=== PATIENT | female | born 1965 | race Caucasian/White ===

== ENCOUNTER 2016-04-13 09:45 | Emergency (ER) | payer BC, OTHER ==
[~2016-04-13] VITALS: Ht 172.7 cm; Wt 83.9 kg
[~2016-04-13 09:45] MED LIST: ASPI-624 PO; CYCL10TA9 PO; HYDR-757 PO; MULT-974 PO; PRD20T PO
[2016-04-13] MEDS ORDERED: fentaNYL INJECTION 100 MCG/2 ML AMP IVP PRN (10:15)
[2016-04-13] MEDS ORDERED: NS IV 1000 ML 1,000 ML IV SCH (10:15)
[2016-04-13] MEDS ORDERED: ONDANSETRON 4 MG/2 ML (SDV) Z0FRAN IVP ONE (10:15)
[2016-04-13 10:21] LABS: BASOPHILS % (AUTO) 0 % (0-10); EOSINOPHILS # (AUTO) 0.1 10^3/uL (0.0-0.3); EOSINOPHILS % (AUTO) 1 % (0-10); LYMPHOCYTES # (AUTO) 1.9 X 10^3 (1.0-4.0); LYMPHOCYTES % (AUTO) 13 % (12-44); MEAN CORPUSCULAR HEMOGLOBIN 31 PG (25-34); MEAN CORPUSCULAR HGB CONC 34 G/DL (32-36); MEAN CORPUSCULAR VOLUME 92 FL (80-99); MEAN PLATELET VOLUME 9.7 FL (7.4-10.4); MONOCYTES # (AUTO) 0.9 X 10^3 (0.0-1.0); MONOCYTES % (AUTO) 6 % (0-12); NEUTROPHILS # (AUTO) 12.2 X 10^3 (1.8-7.8); NEUTROPHILS % (AUTO) 81 % (42-75); PLATELET COUNT 275 10^3/uL (130-400); RED BLOOD COUNT 4.97 10^6/uL (4.35-5.85); WHITE BLOOD COUNT 15.1 10^3/uL (4.3-11.0)
--- NOTE | 2016-04-13 10:22 | ED Abdominal Pain ---
General Chief Complaint: Abdominal/GI Problems Stated Complaint: L SIDE LEG & BACK PAIN Nursing Triage Note: AMBULATED TO ROOM 05 WITH COMPLAINTS OF SEVERE LEFT LOWER ABD PAIN THAT RADIATES INTO BACK. WAS SEEN AT [facility] ET SENT HERE FOR A CT BUT DECIDED TO CHECK INTO ER DUE TO PAIN. Sepsis Screen: No Definite Risk Source of Information: Patient, Family Exam Limitations: No Limitations History of Present Illness Time Seen By Provider: 10:18 Initial Comments This 51-year-old white female presents with complaint of left lower quadrant pain sharp in nature radiating into her back that has been present for the last 3 days. The patient's pain became significantly worse today precipitating her presentation to the emergency department. Patient denies associated fever, chills, vomiting, diarrhea, dysuria or hematuria, or similar episodes in the past. There is no family history of kidney stones. Patient's past medical history includes appendectomy and 3. The patient was referred to the emergency department from [facility]. Allergies and Home Medications Allergies Coded Allergies: No Known Drug Allergies (Unverified , 07/27/13) Home Medications No Active Prescriptions or Reported Meds Review of Systems Constitutional: No chills, No fever EENTM: No Ear Pain, No Throat Pain Respiratory: Denies Cough Cardiovascular: Denies Chest Pain Gastrointestinal: Abdominal Pain (left lower quadrant radiating the left flank.) Genitourinary: Denies Burning, Denies Frequency, Denies Hematuria Musculoskeletal: back pain (pain in the left flank.) Skin: No rash Psychiatric/Neurological: No Symptoms Reported Endocrine: No Symptoms Reported Hematologic/Lymphatic: No Symptoms Reported Past Ckwnjol-Giwxej-Ypmydm Hx Patient Social History Alcohol Use: Occasionally Uses Recreational Drug Use: No Smoking Status: Current Everyday Smoker Recent Foreign Travel: No Contact w/Someone Who Travel: No Recent Infectious Disease Expo: No Recent Hopitalizations: No Surgeries HX Surgeries: Yes (D&C) Surgeries: Appendectomy, Section Respiratory Hx Respiratory Disorders: No Cardiovascular Hx Cardiac Disorders: Yes Cardiac Disorders: Hypertension Neurological Hx Neurological Disorders: No Genitourinary Hx Genitourinary Disorders: No Gastrointestinal Hx Gastrointestinal Disorders: No Musculoskeletal Hx Musculoskeletal Disorders: No Endocrine Hx Endocrine Disorders: No HEENT HX ENT Disorders: No Cancer Hx Cancer: No Psychosocial Hx Psychiatric Problems: No Reviewed Nursing Assessment Reviewed/Agree w Nursing PMH: Yes Physical Exam Vital Signs VS - Last 72 Hours, by Label 04/13/16 09:50 Temp 98.0 Pulse 80 Resp 18 B/P 193/98 Pulse Ox 97 O2 Delivery Room Air Capillary Refill : Less Than 3 Seconds General Appearance: WD/WN moderate distress HEENT: normal ENT inspection Neck: normal inspection Respiratory: lungs clear Cardiovascular: regular rate, rhythm Gastrointestinal: normal bowel sounds non tender soft Extremities: normal range of motion non-tender normal inspection Back: normal inspection no CVA tenderness Neurologic/Psychiatric: no motor/sensory deficits alert normal mood/affect Skin: normal color warm/dryNo rash Progress/Results/Core Measures Results/Orders Lab Results Laboratory Tests Test 04/13/16 10:05 04/13/16 12:00 Range/Units Alanine Aminotransferase (ALT/SGPT) 19 0-55 U/L Albumin 4.2 3.2-4.5 G/DL Alkaline Phosphatase 61 40-136 U/L Anion Gap 12 5-14 MMOL/L Aspartate Amino Transf (AST/SGOT) 19 5-34 U/L BUN/Creatinine Ratio 27 Band Neutrophils % Basophils # (Auto) 0.0 0.0-0.1 10^3/uL Basophils (%) (Auto) 0 0-10 % Blood Morphology Comment NORMAL Blood Urea Nitrogen 18 7-18 MG/DL Calcium Level 8.8 8.5-10.1 MG/DL Carbon Dioxide Level 21 21-32 MMOL/L Chloride Level 105 98-107 MMOL/L Creatinine 0.67 0.60-1.30 MG/DL Eosinophils # (Auto) 0.1 0.0-0.3 10^3/uL Eosinophils % (Manual) % Eosinophils (%) (Auto) 1 0-10 % Estimat Glomerular Filtration Rate > 60 Glucose Level 96 70-105 MG/DL Hematocrit 46 35-52 % Hemoglobin 15.3 11.5-16.0 G/DL Lipase 34 8-78 U/L Lymphocytes # (Auto) 1.9 1.0-4.0 X 10^3 Lymphocytes % (Manual) 16 % Lymphocytes (%) (Auto) 13 12-44 % Mean Corpuscular Hemoglobin 31 25-34 PG Mean Corpuscular Hemoglobin Concent 34 32-36 G/DL Mean Corpuscular Volume 92 80-99 FL Mean Platelet Volume 9.7 7.4-10.4 FL Monocytes # (Auto) 0.9 0.0-1.0 X 10^3 Monocytes % (Manual) 4 % Monocytes (%) (Auto) 6 0-12 % Neutrophils # (Auto) 12.2 H 1.8-7.8 X 10^3 Neutrophils % (Manual) 80 % Neutrophils (%) (Auto) 81 H 42-75 % Platelet Count 275 130-400 10^3/uL Potassium Level 3.9 3.6-5.0 MMOL/L Red Blood Count 4.97 4.35-5.85 10^6/uL Red Cell Distribution Width 15.0 H 10.0-14.5 % Sodium Level 138 135-145 MMOL/L Total Bilirubin 0.4 0.1-1.0 MG/DL Total Protein 7.0 6.4-8.2 G/DL White Blood Count 15.1 H 4.3-11.0 10^3/uL My Orders Orders-MICHELLE ZAMORA MD Fentanyl Injection (Sublimaze Injection (04/13/16 10:15) Ondansetron Injection (Zofran Injectio (04/13/16 10:15) Ns Iv 1000 Ml (Sodium Chloride 0.9%) (04/13/16 10:15) Ct Abd/Pelvis Wo(Kidney Stone) (04/13/16 10:15) Cbc With Automated Diff (04/13/16 10:15) Comprehensive Metabolic Panel (04/13/16 10:15) Ua Culture If Indicated (04/13/16 10:15) Lipase (04/13/16 10:15) Manual Differential (04/13/16 10:05) Hydromorphone Injection (Dilaudid Inject (04/13/16 11:00) Us Non Ob Pelvis Comp/Transvag (04/13/16 11:04) Medications Given in ED Current Medications Medications Dose Ordered Sig/Lorena Route Start Time Stop Time Status Last Admin Dose Admin Fentanyl Citrate 50 mcg Q1H PRN IVP 04/13/16 10:15 04/13/16 10:19 50 MCG Hydromorphone HCl 1 mg Q4H PRN IVP 04/13/16 11:00 04/13/16 11:01 1 MG Ondansetron HCl 4 mg ONCE ONCE IVP 04/13/16 10:15 04/13/16 10:16 DC 04/13/16 10:19 4 MG Vital Signs/I&O Vital Sign - Last 12Hours 04/13/16 09:50 Temp 98.0 Pulse 80 Resp 18 B/P 193/98 Pulse Ox 97 O2 Delivery Room Air Blood Pressure Mean: 129 Progress Note : Time: 12:19 Progress Note The patient's white count was elevated at 15,000. Her CT of the abdomen and pelvis demonstrated no evidence of a kidney stone but some evidence of stranding suggestive of diverticulitis. The patient's pelvic ultrasound demonstrated marked thickening of the endometrium. The radiologist said that it was possible this could represent an endometrial cancer. I discussed treatment options with the patient and we are going to send her with pain medication and nausea medicine. A mass that she initiate Cipro and Flagyl. I asked her to follow up with [facility] on Saturday for further evaluation of her left lower quadrant pain and for her endometrial mass. Departure Impression Impression: Primary Impression: Diverticulitis of intestine Qualified Code: K57.32 - Diverticulitis of large intestine without perforation or abscess without bleeding Additional Impression: Endometrial cancer Disposition: HOME, SELF-CARE Condition: Improved Departure-Patient Inst. Decision time for Depature: 12:22 Referrals: [facility],LOCAL PHYSICIAN (PCP) Primary Care Physician Patient Instructions: Diverticulitis (DC) Add. Discharge Instructions: Flagyl, Cipro, Percocet, and Zofran as prescribed. Close follow-up with [facility] on Saturday for further evaluation of probable diverticulitis and possible endometrial cancer. Come back for any problems or questions All discharge instructions reviewed with patient and/or family. Voiced understanding. Scripts Ondansetron (Zofran Odt)4 Mg Tab.rapdis4 Mg PO Q4H PRN NAUSEA #20 TAB Prov:MICHELLE ZAMORA MD 04/13/16 Oxycodone HCl/Acetaminophen (Percocet 7.5-325 mg Tablet)1 Each Tablet1 Each PO Q4H PRN p #20 TAB Prov:MICHELLE ZAMORA MD 04/13/16 Ciprofloxacin/Ciprofloxa HCl (Ciprofloxacin ER 500 mg Tablet)500 Mg [id number] Mg PO BID 10 Days Prov:MICHELLE ZAMORA MD 04/13/16 Metronidazole (Flagyl)500 Mg [id number] Mg PO TID 10 Days Prov:MICHELLE ZAMORA MD 04/13/16 MICHELLE ZAMORA MD Apr 13, 2016 10:22
[2016-04-13 10:39] LABS: ALANINE AMINOTRANSFERASE 19 U/L (0-55); ALBUMIN 4.2 G/DL (3.2-4.5); ANION GAP 12 MMOL/L (5-14); ASPARTATE AMINO TRANSFERASE 19 U/L (5-34); BILIRUBIN,TOTAL 0.4 MG/DL (0.1-1.0); BLOOD UREA NITROGEN 18 MG/DL (7-18); BUN/CREATININE RATIO 27; CALCIUM 8.8 MG/DL (8.5-10.1); CARBON DIOXIDE 21 MMOL/L (21-32); CHLORIDE 105 MMOL/L (98-107); CREATININE SERUM 0.67 MG/DL (0.60-1.30); GFR ESTIMATED > 60; GLUCOSE 96 MG/DL (70-105); LIPASE 34 U/L (8-78); POTASSIUM 3.9 MMOL/L (3.6-5.0); SODIUM 138 MMOL/L (135-145)
[2016-04-13 10:43] LABS: LYMPHOCYTES % (MANUAL) 16 %; NEUTROPHILS % (MANUAL) 80 %
[2016-04-13] MEDS ORDERED: HYDROmorphone (DILAUDID) 2 MG/ML VIAL IVP PRN (11:00)
--- NOTE | 2016-04-13 11:06 | Diagnostic Imaging Report ---
PROCEDURE: CT urinary tract, rule out kidney stone. TECHNIQUE: Multiple contiguous axial images were obtained through the abdomen and pelvis without the use of intravenous contrast. INDICATION: Left-sided abdominal pain. FINDINGS: The lung bases are clear. The liver, the gallbladder, the spleen, the adrenal glands, and the pancreas appear unremarkable for unenhanced exam. There is no hydronephrosis. No urinary tract stones seen. The appendix appears normal. There are numerous colonic diverticula with no evidence of diverticulitis. No free fluid or fluid collection in the abdomen or pelvis. The abdominal aorta is normal in caliber. There is prominence of the endometrial stripe seen in the upper aspect of the uterus. Better evaluation with ultrasound is recommended. There is a 1.1 cm sclerotic focus in the intertrochanteric region in the right femur and a 1 cm sclerotic focus also seen in the medial aspect of the right sacrum likely related to bone islands. IMPRESSION: 1. Diverticulosis. No diverticulitis. 2. The endometrium appears prominent in thickness. More accurate evaluation with pelvic ultrasound is recommended. The findings were discussed with Dr. Perez by Dr. Boyle at time of dictation. Dictated by: Dictated on workstation # [id number]
[2016-04-13 12:09] LABS: BILIRUBIN,URINE NEGATIVE (NEGATIVE); KETONES,URINE NEGATIVE (NEGATIVE); LEUKOCYTE ESTERASE ,URINE 1+ (NEGATIVE); NITRITE,URINE NEGATIVE (NEGATIVE); PH,URINE 7 (5-9); PROTEIN,URINE 1+ (NEGATIVE); UROBILINOGEN,URINE NORMAL (NORMAL)
[2016-04-13 12:24] LABS: SQUAMOUS EPITHELIAL CELL,UR 25-50 /HPF; YEAST,URINE FEW /HPF
[2016-04-13] MEDS ORDERED: OXYC-201 PO (12:27)
[2016-04-13] MEDS ORDERED: CIPR500T21 PO (12:27)
[2016-04-13] MEDS ORDERED: METR500T PO (12:27)
[2016-04-13] MEDS ORDERED: ONDA4TAB8 PO (12:27)
--- NOTE | 2016-04-13 12:28 | Diagnostic Imaging Report ---
Transabdominal and transvaginal pelvic ultrasound. INDICATION: Prominent endometrium on CT scan. FINDINGS: The uterus is 8.2 x 5.5 x 5.4 cm. The endometrial stripe is thickened measuring 5.5 cm with heterogenous globular appearance compatible with a mass. No internal vascularity with color Doppler is appreciated. The globular appearance is suspicious for neoplasm however. The right ovary is 2.3 x 2.4 x 2.7 cm. Simple-appearing cyst measuring 2 cm seen. The left ovary is obscured by bowel gas. IMPRESSION: There is a 5.5 cm endometrial mass. Differential includes endometrial carcinoma, hyperplasia, or polyp. The findings were discussed with Dr. Perez by Dr. Boyle at the time of dictation. Dictated by: Dictated on workstation # [id number]
[2016-04-13 12:45] VITALS: BP 142/78
== END 2016-04-13 12:41 | disposition home or self-care (01) ==
LOC: EDUNIT# 09:45 → ER 09:47
DX: K57.32 Diverticulitis of large intestine without perforation or abscess without bleeding (principal); N85.8 Other specified noninflammatory disorders of uterus; F17.210 Nicotine dependence, cigarettes, uncomplicated
CPT/HCPCS: 36415; 74176; 76830; 76856; 80053; 81000; 83690; 85007; 85027; 87088; 96374; 96375

== ENCOUNTER 2016-04-16 13:22 | Emergency (ER) | payer BC, OTHER ==
[~2016-04-16] VITALS: Ht 172.7 cm; Wt 83.9 kg
[~2016-04-16 13:22] MED LIST changes: +CIPR500T21 PO; +METR500T PO; +ONDA4TAB8 PO; +OXYC-201 PO
--- OUTSIDE RECORDS SUMMARY | 2016-04-16 13:32 | XMS REPORT | Continuity of Care Document ---
Author Author [facility] Organization [facility] Address Unknown Phone Unavailable Care Team Providers Care Duralumin Mechanic Name Role Phone NO, LOCAL PHYSICIAN PCP Unavailable Insurance Providers Payer Name Policy Number Subscriber Name Relationship Self Pay Pending [facility] Apprv [id number] Lian Mera 18 Self / Same As Patient Advance Directives Directive Response Recorded Date/Time Advance Directives No 04/13/16 10:02am Resuscitation Status Full Code 04/13/16 10:02am Chief Complaint and Reason for Visit Chief Complaint Abdominal/GI Problems Reason for Visit Diverticulitis of intestine [id number] Problems Active Problems Medical Problem Onset Date Status Diverticulitis of intestine Unknown Acute Endometrial cancer Unknown Acute Medications Current Home Medications Medication Dose Units Route Directions Days/Qty Instructions Start Date Metronidazole 500 Mg 500 Mg Oral Three Times A Day 10 Days 04/13/16 Ciprofloxacin/Ciprofloxa Hcl 500 Mg 500 Mg Oral Twice A Day 10 Days Oxycodone Hcl/Acetaminophen 1 Each 1 Each Oral Every 4HRS as needed for P 20 04/13/16 Ondansetron 4 Mg 4 Mg Oral Every 4HRS as needed for Nausea 20 04/13/16 Past Home Medications Medication Directions Ordered Status Aspirin 81 Mg Tablet, 81 Mg Oral Daily 07/27/13 Discontinued Multivitamin 1 Each Tablet, 1 Each Oral Daily 07/27/13 Discontinued Prednisone 20 Mg Tab, 40 Mg Oral Daily 07/27/13 Discontinued Hydrocodone Bit/Acetaminophen 1 Each Tablet, 1 Ea Oral Every 6 Hours as needed for Mild Pain 07/27/13 Discontinued Cyclobenzaprine Hcl (Flexeril) 10 Mg Tablet, 1 Each Oral Twice A Day as needed for Back Pain 07/27/13 Discontinued Social History Social History Problem Response Recorded Date/Time Alcohol Use Rarely Uses 07/27/2013 2:32pm Recreational Drug Use No 07/27/2013 2:32pm Recent Foreign Travel No 04/13/2016 9:50am Recent Infectious Disease Exposure No 04/13/2016 9:50am Smoking Status Current Everyday Smoker 04/13/2016 10:02am Recent Hopitalizations No 04/13/2016 10:02am Query Response Start Date Stop Date Smoking Status Current Everyday Smoker Hospital Discharge Instructions No hospital discharge instructions. Plan of Care Discharge Date 04/13/16 12:41pm Disposition 01 HOME, SELF-CARE Condition at Discharge Improved Instructions/Education Provided Diverticulitis (DC) Prescriptions See Medication Section Referrals [facility],LOCAL PHYSICIAN - Primary Care Physician Additional Instructions/Education Flagyl, Cipro, Percocet, and Zofran as prescribed. Close follow-up with [facility] on Saturday for further evaluation of probable diverticulitis and possible endometrial cancer. Come back for any problems or questions All discharge instructions reviewed with patient and/or family. Voiced understanding. Functional Status No functional status results. Allergies, Adverse Reactions, Alerts No known allergies. Immunizations No immunization records. Vital Signs Acute Vital Signs Vital Response Date/Time Temperature (Fahrenheit) 98 degrees F (97.6 - 99.5) 04/13/2016 9:50am Temperature (Calculated Celsius) 36.6696 degrees C (36.4 - 37.5) 04/13/2016 9 :50am Temperature Source Tympanic 04/13/2016 9:50am Pulse Rate (adult) 80 bpm (60 - 90) 04/13/2016 9:50am Respiratory Rate 18 bpm (12 - 24) 04/13/2016 9:50am O2 Sat by Pulse Oximetry 97 % (88 - 100) 04/13/2016 9:50am Blood Pressure 193/98 mm Hg 04/13/2016 9:50am Blood Pressure Mean 129 mm Hg 04/13/2016 9:50am Pain Numeric Pain Scale 3 04/13/2016 11:18am Pain Numeric Pain Scale 3 04/13/2016 11:18am Height (Feet) 5 feet 04/13/2016 9:50am Height (Inches) 8 inches 04/13/2016 9:50am Height (Calculated Centimeters) 172.674586 cm 04/13/2016 9:50am Weight (Pounds) 185 pounds 04/13/2016 9:50am Weight (Calculated Kilograms) 83.115033 kilograms 04/13/2016 9:50am Capillary Refill Capillary Refill Less Than 3 Seconds 04/13/2016 9:50am Height 5 ft 8 in Weight 185 lb Body Mass Index 28.1 kg/m^2 Results Laboratory Results Test Name Result Units Flags Reference Collection Date/Time Result Date/ Time Comments White Blood Count 15.1 10^3/uL H 4.3-11.0 04/13/2016 10:05am 04/13/2016 10:22am Red Blood Count 4.97 10^6/uL 4.35-5.85 04/13/2016 10:05am 04/13/2016 10 :22am Hemoglobin 15.3 G/DL 11.5-16.0 04/13/2016 10:05am 04/13/2016 10:22am Hematocrit 46 % 35-52 04/13/2016 10:05am 04/13/2016 10:22am Mean Corpuscular Volume 92 FL 80-99 04/13/2016 10:05am 04/13/2016 10: 22am Mean Corpuscular Hemoglobin 31 PG 25-34 04/13/2016 10:05am 04/13/2016 10:22am Mean Corpuscular Hemoglobin Concent 34 G/DL 32-36 04/13/2016 10:05am 10:22am Red Cell Distribution Width 15.0 % H 10.0-14.5 04/13/2016 10:05am 2016 10:22am Platelet Count 275 10^3/uL 130-400 04/13/2016 10:05am 04/13/2016 10: 22am Mean Platelet Volume 9.7 FL 7.4-10.4 04/13/2016 10:05am 04/13/2016 10: 22am Neutrophils (%) (Auto) 81 % H 42-75 04/13/2016 10:05am 04/13/2016 10: 22am Lymphocytes (%) (Auto) 13 % 12-44 04/13/2016 10:05am 04/13/2016 10: 22am Monocytes (%) (Auto) 6 % 0-12 04/13/2016 10:05am 04/13/2016 10:22am Eosinophils (%) (Auto) 1 % 0-10 04/13/2016 10:05am 04/13/2016 10:22am Basophils (%) (Auto) 0 % 0-10 04/13/2016 10:05am 04/13/2016 10:22am Neutrophils # (Auto) 12.2 X 10^3 H 1.8-7.8 04/13/2016 10:05am 04/13/2016 10:22am Lymphocytes # (Auto) 1.9 X 10^3 1.0-4.0 04/13/2016 10:05am 04/13/2016 10:22am Monocytes # (Auto) 0.9 X 10^3 0.0-1.0 04/13/2016 10:05am 04/13/2016 10: 22am Eosinophils # (Auto) 0.1 10^3/uL 0.0-0.3 04/13/2016 10:05am 04/13/2016 10:22am Basophils # (Auto) 0.0 10^3/uL 0.0-0.1 04/13/2016 10:05am 04/13/2016 10 :22am Neutrophils % (Manual) 80 % 04/13/2016 10:05am 04/13/2016 10:43am Lymphocytes % (Manual) 16 % 04/13/2016 10:05am 04/13/2016 10:43am Monocytes % (Manual) 4 % 04/13/2016 10:05am 04/13/2016 10:43am Blood Morphology Comment NORMAL 04/13/2016 10:05am 04/13/2016 10: 43am Urine Color YELLOW 04/13/2016 12:00pm 04/13/2016 12:24pm Urine Clarity CLEAR 04/13/2016 12:00pm 04/13/2016 12:24pm Urine pH 7 5-9 04/13/2016 12:00pm 04/13/2016 12:24pm Urine Specific [place] 1.010 * 1.016-1.022 04/13/2016 12:00pm 2016 12:24pm Urine Protein 1+ * NEGATIVE 04/13/2016 12:00pm 04/13/2016 12:24pm Urine Glucose (UA) NEGATIVE NEGATIVE 04/13/2016 12:00pm 04/13/2016 12 :24pm Urine RBC (Auto) NEGATIVE NEGATIVE 04/13/2016 12:00pm 04/13/2016 12: 24pm Urine Ketones NEGATIVE NEGATIVE 04/13/2016 12:00pm 04/13/2016 12: 24pm Urine Nitrite NEGATIVE NEGATIVE 04/13/2016 12:00pm 04/13/2016 12: 24pm Urine Bilirubin NEGATIVE NEGATIVE 04/13/2016 12:00pm 04/13/2016 12: 24pm Urine Urobilinogen NORMAL MG/DL NORMAL 04/13/2016 12:00pm 04/13/2016 12 :24pm Urine Leukocyte Esterase 1+ * NEGATIVE 04/13/2016 12:00pm 04/13/2016 12 :24pm Urine RBC 2-5 /HPF * 04/13/2016 12:00pm 04/13/2016 12:24pm Urine WBC 2-5 /HPF 04/13/2016 12:00pm 04/13/2016 12:24pm Urine Bacteria FEW /HPF * 04/13/2016 12:00pm 04/13/2016 12:24pm Urine Squamous Epithelial Cells 25-50 /HPF * 04/13/2016 12:00pm 2016 12:24pm Urine Crystals NONE /LPF 04/13/2016 12:00pm 04/13/2016 12:24pm Urine Casts NONE /LPF 04/13/2016 12:00pm 04/13/2016 12:24pm Urine Mucus SMALL /LPF * 04/13/2016 12:00pm 04/13/2016 12:24pm Urine Yeast FEW /HPF * 04/13/2016 12:00pm 04/13/2016 12:24pm Urine Culture Indicated YES 04/13/2016 12:00pm 04/13/2016 12:24pm Sodium Level 138 MMOL/L 135-145 04/13/2016 10:05am 04/13/2016 10:39am Potassium Level 3.9 MMOL/L 3.6-5.0 04/13/2016 10:05am 04/13/2016 10: 39am Chloride Level 105 MMOL/L 98-107 04/13/2016 10:05am 04/13/2016 10:39am Carbon Dioxide Level 21 MMOL/L 21-32 04/13/2016 10:05am 04/13/2016 10: 39am Anion Gap 12 MMOL/L 5-14 04/13/2016 10:05am 04/13/2016 10:39am Blood Urea Nitrogen 18 MG/DL 7-18 04/13/2016 10:05am 04/13/2016 10: 39am Creatinine 0.67 MG/DL 0.60-1.30 04/13/2016 10:05am 04/13/2016 10:39am BUN/Creatinine Ratio 27 04/13/2016 10:05am 04/13/2016 10:39am Estimat Glomerular Filtration Rate > 60 04/13/2016 10:052016 10:39am GFR INTERPRETIVE DATA UNITS FOR ESTIMATED GFR (eGFR): mL/min/1.73 M2 REFERENCE RANGE FOR ESTIMATED GFR (eGFR) eGFR NORMAL eGFR >60 MODERATELY DECREASED eGFR 30-59 SEVERLY DECREASED eGFR 15-29 KIDNEY FAILURE <15 (OR DIALYSIS) Glucose Level 96 MG/DL 70-105 04/13/2016 10:05am 04/13/2016 10:39am Calcium Level 8.8 MG/DL 8.5-10.1 04/13/2016 10:05am 04/13/2016 10:39am Total Bilirubin 0.4 MG/DL 0.1-1.0 04/13/2016 10:05am 04/13/2016 10: 39am Alkaline Phosphatase 61 U/L 40-136 04/13/2016 10:05am 04/13/2016 10: 39am Aspartate Amino Transf (AST/SGOT) 19 U/L 5-34 04/13/2016 10:05am 2016 10:39am Alanine Aminotransferase (ALT/SGPT) 19 U/L 0-55 04/13/2016 10:05am 05/2016 10:39am Total Protein 7.0 G/DL 6.4-8.2 04/13/2016 10:05am 04/13/2016 10:39am Albumin 4.2 G/DL 3.2-4.5 04/13/2016 10:05am 04/13/2016 10:39am Lipase 34 U/L 8-78 04/13/2016 10:05am 04/13/2016 10:39am Procedures No known history of procedures. Encounters Encounter Location Arrival/Admit Date Discharge/Depart Date Attending Provider Departed Emergency Room [facility] 04/13/16 9:47am 04/13 12:41pm MICHELLE ZAMORA MD Recent Diagnosis
[2016-04-16] MEDS ORDERED: KETOROLAC 30 MG/ML VIAL IVP ONE (14:30)
--- NOTE | 2016-04-16 14:43 | ED Abdominal Pain ---
General Chief Complaint: Abdominal/GI Problems Stated Complaint: ABD PAIN;BACK PAIN Nursing Triage Note: pt reports stabbing, burning pain that she was seen for on Saturday and diagnosed with diverticulitis and possible endometrial cancer. pt states pain becoming increasingly worse despite taking antibiotics and pain pills. Sepsis Screen: No Definite Risk Source of Information: Patient Exam Limitations: No Limitations History of Present Illness Time Seen By Provider: 14:41 Initial Comments To ER with suprapubic/left lower quadrant abdominal pain. She was seen here 3 days ago and diagnosed with diverticulitis. She states the pain has become worse since then. She was given a prescription for Percocet and Cipro as well as Zofran and Flagyl. Because of cost she only filled the Percocet and the Cipro. Timing/Duration: 2-3 Days Severity/Quality: Moderate Location: Suprapubic Radiation: No Radiation Activities at Onset: None Associated Symptoms: Denies Symptoms Allergies and Home Medications Allergies Coded Allergies: No Known Drug Allergies (Unverified , 07/27/13) Home Medications Ciprofloxacin/Ciprofloxa HCl 500 Mg Tbmp.24hr 10Days 500 MG PO BID Prescribed by: MICHELLE ZAMORA MD on 04/13/16 1227 Oxycodone HCl/Acetaminophen 1 Each Tablet #20 1 EACH PO Q4H PRN PRN p Prescribed by: MICHELLE ZAMORA MD on 04/13/16 1227 Oxycodone HCl/Acetaminophen 1 Each Tablet #20 1-2 EACH PO Q4H PRN PRN PAIN Prescribed by: SCARLETT DOWNING on 04/16/16 1622 Review of Systems Constitutional: see HPI EENTM: No Symptoms Reported Respiratory: No Symptoms Reported Cardiovascular: No Symptoms Reported Gastrointestinal: See HPI Abdominal Pain ConstipatedDenies Diarrhea, Denies Nausea Genitourinary: No Symptoms Reported Musculoskeletal: no symptoms reported Skin: no symptoms reported Psychiatric/Neurological: No Symptoms Reported Endocrine: No Symptoms Reported Hematologic/Lymphatic: No Symptoms Reported Past Qpalzmf-Pissjg-Akwtlw Hx Patient Social History Alcohol Use: Rarely Uses Recreational Drug Use: No Smoking Status: Current Everyday Smoker Recent Foreign Travel: No Contact w/Someone Who Travel: No Recent Infectious Disease Expo: No Recent Hopitalizations: No Seasonal Allergies Seasonal Allergies: No Surgeries HX Surgeries: Yes (d&c with ablation) Surgeries: Appendectomy, Section Respiratory Hx Respiratory Disorders: No Cardiovascular Hx Cardiac Disorders: Yes Cardiac Disorders: Hypertension Neurological Hx Neurological Disorders: No Reproductive System : No Genitourinary Hx Genitourinary Disorders: No Gastrointestinal Hx Gastrointestinal Disorders: No Musculoskeletal Hx Musculoskeletal Disorders: No Endocrine Hx Endocrine Disorders: No HEENT HX ENT Disorders: No Cancer Hx Cancer: No Psychosocial Hx Psychiatric Problems: No Integumentary HX Skin/Integumentary Disorder: No Blood Transfusions Hx Blood Disorders: No Physical Exam Vital Signs VS - Last 72 Hours, by Label 04/16/16 04/16/16 14:14 16:50 Temp 99.4 Pulse 76 76 Resp 20 18 B/P 148/86 Pulse Ox 98 98 O2 Delivery Room Air Capillary Refill : Less Than 3 Seconds General Appearance: WD/WN no apparent distress HEENT: PERRL/EOMI normal ENT inspection Neck: non-tender full range of motion Respiratory: normal breath sounds no respiratory distress no accessory muscle use Cardiovascular: regular rate, rhythm no murmur Gastrointestinal: normal bowel sounds soft tenderness Extremities: normal range of motion non-tender normal inspection Pelvic: other (on pelvic exam there is no cervical friability, there is minimal whitish discharge in vaginal vault, no discharge seen coming from the cervix including no blood.) Neurologic/Psychiatric: alert normal mood/affect oriented x 3 Skin: normal color warm/dry Progress/Results/Core Measures Results/Orders Lab Results Laboratory Tests Test 04/16/16 14:33 04/16/16 15:40 Range/Units Alanine Aminotransferase (ALT/SGPT) 13 0-55 U/L Albumin 4.0 3.2-4.5 G/DL Alkaline Phosphatase 64 40-136 U/L Anion Gap 10 5-14 MMOL/L Aspartate Amino Transf (AST/SGOT) 17 5-34 U/L BUN/Creatinine Ratio 17 Band Neutrophils 0 % Basophils # (Auto) 0.0 0.0-0.1 10^3/uL Basophils % (Manual) 0 % Basophils (%) (Auto) 0 0-10 % Blood Morphology Comment NORMAL Blood Urea Nitrogen 11 7-18 MG/DL Calcium Level 8.6 8.5-10.1 MG/DL Carbon Dioxide Level 23 21-32 MMOL/L Chloride Level 104 98-107 MMOL/L Creatinine 0.64 0.60-1.30 MG/DL Eosinophils # (Auto) 0.1 0.0-0.3 10^3/uL Eosinophils % (Manual) 0 % Eosinophils (%) (Auto) 0 0-10 % Estimat Glomerular Filtration Rate > 60 Glucose Level 96 70-105 MG/DL Hematocrit 43 35-52 % Hemoglobin 14.5 11.5-16.0 G/DL Lymphocytes # (Auto) 1.1 1.0-4.0 X 10^3 Lymphocytes % (Manual) 9 % Lymphocytes (%) (Auto) 7 L 12-44 % Mean Corpuscular Hemoglobin 31 25-34 PG Mean Corpuscular Hemoglobin Concent 34 32-36 G/DL Mean Corpuscular Volume 92 80-99 FL Mean Platelet Volume 9.7 7.4-10.4 FL Monocytes # (Auto) 1.0 0.0-1.0 X 10^3 Monocytes % (Manual) 7 % Monocytes (%) (Auto) 6 0-12 % Neutrophils # (Auto) 14.2 H 1.8-7.8 X 10^3 Neutrophils % (Manual) 84 % Neutrophils (%) (Auto) 87 H 42-75 % Platelet Count 259 130-400 10^3/uL Potassium Level 3.6 3.6-5.0 MMOL/L Red Blood Count 4.70 4.35-5.85 10^6/uL Red Cell Distribution Width 14.8 H 10.0-14.5 % Sodium Level 137 135-145 MMOL/L Total Bilirubin 0.5 0.1-1.0 MG/DL Total Protein 6.9 6.4-8.2 G/DL White Blood Count 16.4 H 4.3-11.0 10^3/uL Urine Bacteria NEGATIVE /HPF Urine Bilirubin NEGATIVE NEGATIVE Urine Casts NONE /LPF Urine Clarity SLIGHTLY CLOUDY Urine Color YELLOW Urine Crystals NONE /LPF Urine Culture Indicated NO Urine Glucose (UA) NEGATIVE NEGATIVE Urine Ketones 3+ H NEGATIVE Urine Leukocyte Esterase 1+ H NEGATIVE Urine Mucus NEGATIVE /LPF Urine Nitrite NEGATIVE NEGATIVE Urine Protein 1+ H NEGATIVE Urine RBC NONE /HPF Urine RBC (Auto) NEGATIVE NEGATIVE Urine Specific [place] 1.010 L 1.016-1.022 Urine Squamous Epithelial Cells 25-50 H /HPF Urine Urobilinogen NORMAL NORMAL MG/DL Urine WBC 0-2 /HPF Urine pH 6.5 5-9 Micro Results Microbiology 04/16/16 Wet Prep - Final, Complete My Orders Orders-SCARLETT DOWNING PROTOCOL MANAGER Cbc With Automated Diff (04/16/16 14:24) Comprehensive Metabolic Panel (04/16/16 14:24) Saline Lock/Iv-Start (04/16/16 14:24) Ketorolac Injection (Toradol Injection) (04/16/16 14:30) Piperacillin Sodium/Tazobactam (Zosyn Vi (04/16/16 14:45) Manual Differential (04/16/16 14:33) Ct Abdomen/Pelvis W (04/16/16 15:07) Wet Prep (04/16/16 15:08) Ua Culture If Indicated (04/16/16 15:09) Iohexol Injection (Omnipaque 350 Mg/Ml 1 (04/16/16 15:15) Ns (Ivpb) (Sodium Chloride 0.9% Ivpb Bag (04/16/16 15:15) Medications Given in ED Current Medications Medications Dose Ordered Sig/Lorena Route Start Time Stop Time Status Last Admin Dose Admin Iohexol 100 ml ONCE ONCE IV 04/16/16 15:15 04/16/16 15:21 DC 04/16/16 15:26 100 ML Ketorolac Tromethamine 30 mg 30 mg ONCE ONCE IVP 04/16/16 14:30 04/16/16 14:31 DC 04/16/16 14:50 30 MG Piperacillin Sod/ Tazobactam Sod/ Sodium Chloride 100 ml @ 200 mls/hr ONCE ONCE IV 04/16/16 14:45 04/16/16 15:14 DC 04/16/16 14:51 200 MLS/HR Sodium Chloride 100 ml ONCE ONCE IV 04/16/16 15:15 04/16/16 15:21 DC 04/16/16 15:26 80 ML Vital Signs/I&O Vital Sign - Last 12Hours 04/16/16 04/16/16 14:14 16:50 Temp 99.4 Pulse 76 76 Resp 20 18 B/P 148/86 Pulse Ox 98 98 O2 Delivery Room Air Blood Pressure Mean: 106 Diagnostic Imaging Diagonstic Imaging: CT Comments NAME: KALEN POWELL [facility] REC#: [id number] PT STATUS: REG ER : 1965 PHYSICIAN: SCARLETT DOWNING APRN ADMIT DATE: 04/16/16/ER Draft Date of Exam:04/16/16 CT ABDOMEN/PELVIS W PROCEDURE: CT abdomen and pelvis with contrast. TECHNIQUE: Multiple contiguous axial images were obtained through the abdomen and pelvis after administration of intravenous contrast. INDICATION: Left lower quadrant pain. 100 mL of Omnipaque 350 was administered intravenously. COMPARISON: 06/04/2016 FINDINGS: The lung bases appear clear. The liver, gallbladder, spleen, pancreas, and adrenal glands appear unremarkable. The kidneys have symmetric enhancement and contrast excretion. There is a tiny amount of pelvic free fluid. There is diverticulosis. The appendix is normal. There is a minimal stranding around the left colon near the sigmoid descending junction, of questionable significance. If that is the location of pain and tenderness, then this might relate to mild diverticulitis. The uterus has a central hypodense mass, as described on the previous study and on the ultrasound, measuring 2.3 cm AP by 2.6 cm transverse dimension by 3.6 cm with peripheral enhancement concerning for endometrial cancer. There is no pelvic lymphadenopathy. There is no abscess. The abdominal aorta is normal in caliber. No para-aortic significantly enlarged lymph nodes are seen. The osseous structures demonstrate a sclerotic focus in the intertrochanteric region and the medial inferior aspect of the right iliac bone, presumably related to bone islands. IMPRESSION: 1. Diverticulosis. There is minimal stranding and thickening of the descending/sigmoid colon junction which may relate to mild diverticulitis. There is only at minimal amount of free fluid with no significant fluid collection or abscess seen otherwise. 2. A 3.6 cm endometrial mass, as described on prior ultrasound and CT scan, concerning for endometrial carcinoma. Dictated on workstation # [id number] Dict: 04/16/16 1542 Trans: 04/16/16 1555 [facility] [phone] Interpreted by: MENDY CORONA MD Electronically signed by: Departure Communication Progress Notes Patient would rather not have a pelvic exam done today but she does agree to it. I recommended this given her whitish vaginal discharge. She denies vaginal bleeding now or at any time. States that she had an endometrial ablation done in [address] at [place] [address] Pereyra following an episode of heavy vaginal bleeding. Apparently there was one area of concern that they called a polyp which was sent to pathology and was told was benign. She does have follow up scheduled in [address] Short office. 1603-She reports significantly improved pain after IV toradol. Impression Impression: Primary Impression: Abnormal endometrial ultrasound Additional Impressions: Suprapubic abdominal pain Leukocytosis Disposition: 01 HOME, SELF-CARE Condition: Improved Departure-Patient Inst. Decision time for Depature: 16:20 Referrals: GLORIA SHORT,LOCAL PHYSICIAN (PCP) Primary Care Physician Patient Instructions: NO INSTRUCTIONS GIVEN Add. Discharge Instructions: 1. Take xivw-aks-wrcyqqr ibuprofen (Motrin) which would be for of the regular strength tablets every 8 hours for the next few days in addition to the prescribed pain killers 2. Return to ER for any concerns 3. Keep your appointment with Dr. SHORT on Saturday 4. You should also take an qmrl-xts-xzkscuo stool softener such as Colace or laxative like MiraLAX 1 capful daily to help prevent constipation associated with the pain killer use. All discharge instructions reviewed with patient and/or family. Voiced understanding. Scripts Oxycodone HCl/Acetaminophen (Percocet 5-325 mg Tablet)1 Each Tablet1-2 Each PO Q4H PRN PAIN #20 TAB Prov:SCARLETT DOWNING APRN 04/16/16 Copy Copies To 1: GLORIA SHORT PETER J APRN Apr 16, 2016 14:42
[2016-04-16] MEDS ORDERED: PIPERACILLIN SODIUM/TAZOBACTAM 4.5 GM in NS (IVPB) 100 ML IV ONE (14:45)
[2016-04-16 14:46] LABS: BASOPHILS % (AUTO) 0 % (0-10); EOSINOPHILS # (AUTO) 0.1 10^3/uL (0.0-0.3); EOSINOPHILS % (AUTO) 0 % (0-10); LYMPHOCYTES # (AUTO) 1.1 X 10^3 (1.0-4.0); LYMPHOCYTES % (AUTO) 7 % (12-44); MEAN CORPUSCULAR HEMOGLOBIN 31 PG (25-34); MEAN CORPUSCULAR HGB CONC 34 G/DL (32-36); MEAN CORPUSCULAR VOLUME 92 FL (80-99); MEAN PLATELET VOLUME 9.7 FL (7.4-10.4); MONOCYTES % (AUTO) 6 % (0-12); NEUTROPHILS # (AUTO) 14.2 X 10^3 (1.8-7.8); NEUTROPHILS % (AUTO) 87 % (42-75); PLATELET COUNT 259 10^3/uL (130-400); RED CELL DISTRIBUTION WIDTH 14.8 % (10.0-14.5); WHITE BLOOD COUNT 16.4 10^3/uL (4.3-11.0)
[2016-04-16 15:00] LABS: BAND NEUTROPHILS 0 %; BASOPHILS % (MANUAL) 0 %; EOSINOPHILS % (MANUAL) 0 %; LYMPHOCYTES % (MANUAL) 9 %; NEUTROPHILS % (MANUAL) 84 %
[2016-04-16 15:10] LABS: ALANINE AMINOTRANSFERASE 13 U/L (0-55); ANION GAP 10 MMOL/L (5-14); ASPARTATE AMINO TRANSFERASE 17 U/L (5-34); BILIRUBIN,TOTAL 0.5 MG/DL (0.1-1.0); BLOOD UREA NITROGEN 11 MG/DL (7-18); BUN/CREATININE RATIO 17; CALCIUM 8.6 MG/DL (8.5-10.1); CARBON DIOXIDE 23 MMOL/L (21-32); CHLORIDE 104 MMOL/L (98-107); CREATININE SERUM 0.64 MG/DL (0.60-1.30); GFR ESTIMATED > 60; GLUCOSE 96 MG/DL (70-105); POTASSIUM 3.6 MMOL/L (3.6-5.0); SODIUM 137 MMOL/L (135-145); TOTAL PROTEIN 6.9 G/DL (6.4-8.2)
[2016-04-16] MEDS ORDERED: IOHEXOL 350 MG/ML 100 ML (OMNIPAQUE 350) VIAL IV ONE (15:15)
[2016-04-16] MEDS ORDERED: NS 100 ML (IVPB) BAG IV ONE (15:15)
[2016-04-16 15:50] LABS: BILIRUBIN,URINE NEGATIVE (NEGATIVE); KETONES,URINE 3+ (NEGATIVE); LEUKOCYTE ESTERASE ,URINE 1+ (NEGATIVE); NITRITE,URINE NEGATIVE (NEGATIVE); PH,URINE 6.5 (5-9); PROTEIN,URINE 1+ (NEGATIVE); UROBILINOGEN,URINE NORMAL (NORMAL)
--- NOTE | 2016-04-16 15:55 | Diagnostic Imaging Report ---
PROCEDURE: CT abdomen and pelvis with contrast. TECHNIQUE: Multiple contiguous axial images were obtained through the abdomen and pelvis after administration of intravenous contrast. INDICATION: Left lower quadrant pain. 100 mL of Omnipaque 350 was administered intravenously. COMPARISON: 06/04/2016 FINDINGS: The lung bases appear clear. The liver, gallbladder, spleen, pancreas, and adrenal glands appear unremarkable. The kidneys have symmetric enhancement and contrast excretion. There is a tiny amount of pelvic free fluid. There is diverticulosis. The appendix is normal. There is a minimal stranding around the left colon near the sigmoid descending junction, of questionable significance. If that is the location of pain and tenderness, then this might relate to mild diverticulitis. The uterus has a central hypodense mass, as described on the previous study and on the ultrasound, measuring 2.3 cm AP by 2.6 cm transverse dimension by 3.6 cm with peripheral enhancement concerning for endometrial cancer. There is no pelvic lymphadenopathy. There is no abscess. The abdominal aorta is normal in caliber. No para-aortic significantly enlarged lymph nodes are seen. The osseous structures demonstrate a sclerotic focus in the intertrochanteric region and the medial inferior aspect of the right iliac bone, presumably related to bone islands. IMPRESSION: 1. Diverticulosis. There is minimal stranding and thickening of the descending/sigmoid colon junction which may relate to mild diverticulitis. There is minimal amount of free fluid with no significant fluid collection or abscess seen otherwise. 2. A 3.6 cm endometrial mass, as described on prior ultrasound and CT scan, concerning for endometrial carcinoma. Dictated by: Dictated on workstation # [id number]
[2016-04-16 16:17] LABS: SQUAMOUS EPITHELIAL CELL,UR 25-50 /HPF; WBC,URINE 0-2 /HPF
[2016-04-16] MEDS ORDERED: OXYC-197 PO (16:22)
[2016-04-16 16:50] VITALS: BP 146/100
== END 2016-04-16 16:50 | disposition home or self-care (01) ==
LOC: EDUNIT# 13:22 → ER 13:25
DX: R10.30 Lower abdominal pain, unspecified (principal); D72.829 Elevated white blood cell count, unspecified; R93.8 Abnormal findings on diagnostic imaging of other specified body structures; K57.30 Diverticulosis of large intestine without perforation or abscess without bleeding; I10 Essential (primary) hypertension; F17.210 Nicotine dependence, cigarettes, uncomplicated; Z79.899 Other long term (current) drug therapy
CPT/HCPCS: 36415; 74177; 80053; 81000; 85007; 85027; 87210; 96365; 96375

== ENCOUNTER → 2016-12-14 | Outpatient (CLI) | payer BC ==
[~2016-12-14] MED LIST changes: +OXYC-197 PO
--- NOTE | 2016-12-17 14:24 | Diagnostic Imaging Report ---
EXAMINATION: Bilateral screening mammogram 2D views with tomosynthesis. The current study was also evaluated with a Computer Aided Detection (CAD) system. INDICATION: Screening. PERSONAL HISTORY: No current complaints stated on the questionnaire. COMPARISON: None. This is a baseline study. FINDINGS: The breasts are composed of scattered fibroglandular densities. There are scattered benign-appearing calcifications. No architectural distortion or suspicious mass. IMPRESSION: No mammographic evidence of malignancy. ACR BI-RADS Category 2: Benign findings. Result letter will be mailed to the patient. Note: At least 10% of breast cancer is not imaged by mammography. Dictated by: Dictated on workstation # [id number]
== END ==
LOC: RAD 10:39
PROVIDERS: ATTEND Family Medicine
DX: Z12.31 Encounter for screening mammogram for malignant neoplasm of breast (principal)
CPT/HCPCS: 77067

== ENCOUNTER 2019-05-12 10:49 | Emergency (ER) | payer BC ==
[~2019-05-12] VITALS: Ht 177.8 cm; Wt 95.7 kg
[~2019-05-12 10:49] MED LIST changes: -OXYC-197 PO; -OXYC-201 PO; +OXYC1TAB16 PO; +OXYC1TAB87 PO
[2019-05-12] MEDS ORDERED: cloNIDine 0.1 MG (CATAPRES) TAB PO ONE (11:00)
--- NOTE | 2019-05-12 11:01 | ED General ---
General Stated Complaint: BP ISSUES Source of Information: Patient Exam Limitations: No Limitations History of Present Illness Date Seen by Provider: May 12, 2019 Time Seen by Provider: 10:58 Initial Comments To ER with reports of a headache and high blood pressure. She states that she always has a headache, however it seems to be worse lately. This is in the back of her head and neck. She was formerly on lisinopril and Norvasc but due to warnings that she saw on TV she stopped taking the Norvasc several months ago. She is currently on lisinopril she states. Timing/Duration: Getting Worse Severity: Moderate Associated Systoms: Headaches Allergies and Home Medications Allergies Coded Allergies: No Known Drug Allergies (Unverified , 07/27/13) Home Medications Ciprofloxacin/Ciprofloxa HCl 500 Mg Tbmp.24hr, 500 MG PO BID Prescribed by: MICHELLE ZAMORA MD on 04/13/16 1227 Oxycodone HCl/Acetaminophen 1 Each Tablet, 1 EACH PO Q4H PRN for p Prescribed by: MICHELLE ZAMORA MD on 04/13/16 1227 Oxycodone HCl/Acetaminophen 1 Each Tablet, 1-2 EACH PO Q4H PRN for PAIN Prescribed by: SCARLETT DOWNING on 04/16/16 1622 Patient Home Medication List Home Medication List Reviewed: Yes Review of Systems Review of Systems Constitutional: see HPI EENTM: see HPI Respiratory: no symptoms reported Cardiovascular: no symptoms reported Genitourinary: no symptoms reported Musculoskeletal: no symptoms reported Skin: no symptoms reported Psychiatric/Neurological: Headache Hematologic/Lymphatic: No Symptoms Reported Past Tkuhdpa-Oqmmpa-Jcenpw Hx Patient Social History Alcohol Beverage of Choice: Wine Recent Foreign Travel: No Contact w/Someone Who Travel: No Recent Hopitalizations: No Seasonal Allergies Seasonal Allergies: No Past Medical History Appendectomy, Section Hypertension Physical Exam Vital Signs Vital Signs - First Documented 05/12/19 11:04 Temp 37.2 Pulse 70 Resp 20 B/P (MAP) 209/108 (141) O2 Delivery Room Air Capillary Refill : Height, Weight, BMI Height: 5'8" Weight: 185lbs. oz. 83.958729tx; BMI Method:Stated General Appearance: No Apparent Distress, WD/WN Eyes: Bilateral Eye Normal Inspection, Bilateral Eye PERRL HEENT: PERRL/EOMI, TMs Normal Neck: Full Range of Motion, Normal Inspection Respiratory: No Accessory Muscle Use, No Respiratory Distress Cardiovascular: Regular Rate, Rhythm, Normal Peripheral Pulses Gastrointestinal: Normal Bowel Sounds, Non Tender, Soft Extremity: Normal Capillary Refill Neurologic/Psychiatric: Alert, Oriented x3 Skin: Normal Color, Warm/Dry Progress/Results/Core Measures Suspected Sepsis SIRS Temperature: Pulse: Respiratory Rate: Laboratory Tests 05/12/19 11:22: White Blood Count 7.4 Blood Pressure / Mean: Laboratory Tests 05/12/19 11:22: Creatinine 0.73, Platelet Count 279 Results/Orders Lab Results Laboratory Tests Test 05/12/19 11:22 Range/Units White Blood Count 7.4 4.3-11.0 10^3/uL Red Blood Count 5.32 4.35-5.85 10^6/uL Hemoglobin 15.7 11.5-16.0 G/DL Hematocrit 47 35-52 % Mean Corpuscular Volume 89 80-99 FL Mean Corpuscular Hemoglobin 30 25-34 PG Mean Corpuscular Hemoglobin Concent 33 32-36 G/DL Red Cell Distribution Width 15.7 H 10.0-14.5 % Platelet Count 279 130-400 10^3/uL Mean Platelet Volume 9.8 7.4-10.4 FL Neutrophils (%) (Auto) 63 42-75 % Lymphocytes (%) (Auto) 29 12-44 % Monocytes (%) (Auto) 7 0-12 % Eosinophils (%) (Auto) 2 0-10 % Basophils (%) (Auto) 1 0-10 % Neutrophils # (Auto) 4.7 1.8-7.8 X 10^3 Lymphocytes # (Auto) 2.1 1.0-4.0 X 10^3 Monocytes # (Auto) 0.5 0.0-1.0 X 10^3 Eosinophils # (Auto) 0.1 0.0-0.3 10^3/uL Basophils # (Auto) 0.0 0.0-0.1 10^3/uL Sodium Level 138 135-145 MMOL/L Potassium Level 3.7 3.6-5.0 MMOL/L Chloride Level 100 98-107 MMOL/L Carbon Dioxide Level 27 21-32 MMOL/L Anion Gap 11 5-14 MMOL/L Blood Urea Nitrogen 14 7-18 MG/DL Creatinine 0.73 0.60-1.30 MG/DL Estimat Glomerular Filtration Rate > 60 BUN/Creatinine Ratio 19 Glucose Level 91 70-105 MG/DL Calcium Level 9.1 8.5-10.1 MG/DL My Orders Orders - SCARLETT DOWNING APRN Clonidine Tablet (Catapres Tablet) (05/12/19 11:00) Cbc With Automated Diff (05/12/19 11:06) Basic Metabolic Panel (05/12/19 11:06) Medications Given in ED Current Medications Medications Dose Ordered Sig/Lorena Route Start Time Stop Time Status Last Admin Dose Admin Clonidine HCl 0.2 mg ONCE ONCE PO 05/12/19 11:00 05/12/19 11:01 DC 05/12/19 11:03 0.2 MG Vital Signs/I&O 05/12/19 11:04 Temp 37.2 Pulse 70 Resp 20 B/P (MAP) 209/108 (141) O2 Delivery Room Air Capillary Refill : Departure Communication (Admissions) Blood pressure down to 140/78, headache is improved but still there. Impression Primary Impression: Chronic hypertension Additional Impression: Chronic headache Qualified Codes: R51 - Headache Disposition: HOME, SELF-CARE Condition: Stable Departure-Patient Inst. Decision time for Depature: 11:03 Referrals: NO,LOCAL PHYSICIAN (PCP/Family) Primary Care Physician Patient Instructions: Tension Headache, High Blood Pressure (DC) Add. Discharge Instructions: 1. Double your lisinopril dosage. Return to ER for any concerns. Follow-up with primary care to further evaluate headaches this week. Scripts Butalb/Acetaminophen/Caffeine (Esgic 50-325-40 mg Tablet) 1 Each Tablet 1-2 EACH PO Q4H PRN for headache, #10 TAB Prov: SCARLETT DOWNING APRN 05/12/19 SCARLETT DOWNING APRN May 12, 2019 11:01
[2019-05-12 11:30] LABS: BASOPHILS % (AUTO) 1 % (0-10); EOSINOPHILS # (AUTO) 0.1 10^3/uL (0.0-0.3); EOSINOPHILS % (AUTO) 2 % (0-10); HEMATOCRIT 47 % (35-52); HEMOGLOBIN 15.7 G/DL (11.5-16.0); LYMPHOCYTES # (AUTO) 2.1 X 10^3 (1.0-4.0); LYMPHOCYTES % (AUTO) 29 % (12-44); MEAN CORPUSCULAR HEMOGLOBIN 30 PG (25-34); MEAN CORPUSCULAR HGB CONC 33 G/DL (32-36); MEAN CORPUSCULAR VOLUME 89 FL (80-99); MEAN PLATELET VOLUME 9.8 FL (7.4-10.4); MONOCYTES # (AUTO) 0.5 X 10^3 (0.0-1.0); MONOCYTES % (AUTO) 7 % (0-12); NEUTROPHILS # (AUTO) 4.7 X 10^3 (1.8-7.8); NEUTROPHILS % (AUTO) 63 % (42-75); PLATELET COUNT 279 10^3/uL (130-400); RED CELL DISTRIBUTION WIDTH 15.7 % (10.0-14.5); WHITE BLOOD COUNT 7.4 10^3/uL (4.3-11.0)
[2019-05-12 11:59] LABS: BUN/CREATININE RATIO 19; CALCIUM 9.1 MG/DL (8.5-10.1); CARBON DIOXIDE 27 MMOL/L (21-32); CHLORIDE 100 MMOL/L (98-107); CREATININE SERUM 0.73 MG/DL (0.60-1.30); GFR ESTIMATED > 60; GLUCOSE 91 MG/DL (70-105); POTASSIUM 3.7 MMOL/L (3.6-5.0); SODIUM 138 MMOL/L (135-145)
[2019-05-12] MEDS ORDERED: BUTA-249 PO (12:30)
[2019-05-12 12:33] VITALS: BP 138/94
== END 2019-05-12 12:33 | disposition home or self-care (01) ==
LOC: EDUNIT# 10:49 → ER 10:50
DX: I10 Essential (primary) hypertension (principal)
CPT/HCPCS: 36415; 80048; 85025

== ENCOUNTER 2020-03-29 05:28 | Outpatient (RCR) | payer BC ==
[~2020-03-29] VITALS: Ht 177.8 cm; Wt 90.9 kg
[~2020-03-29 05:28] MED LIST changes: +AMLO-251 PO; +BUTA-249 PO; +HYDR12.56 PO; +LISI40TA PO; +PARO-49 PO; +PARO40TA PO
[2020-03-31] MEDS ORDERED: ACHD5005 PO (11:25)
== END 2020-03-29 09:27 | disposition home or self-care (01) ==
LOC: PREOP 05:28
PROVIDERS: ATTEND Surgery
DX: Z01.812 Encounter for preprocedural laboratory examination (principal); L98.9 Disorder of the skin and subcutaneous tissue, unspecified; Z20.822 Contact with and (suspected) exposure to COVID-19
CPT/HCPCS: 87635

== ENCOUNTER → 2020-03-31 | Day surgery (SDC) | payer BC ==
[~2020-03-31] VITALS: Ht 177.8 cm; Wt 90.9 kg
[~2020-03-31] MED LIST changes: +ACHD5005 PO; +LIDOCAINE/EPI 1%-1:100,000 (XYLOCAINE) 50 ML ONE; +MEPERIDINE (DEMEROL) INJ 50 MG/ML IVP ONE; +MIDAZOLAM 2 MG/2 ML (VERSED) VIAL ONE; +ONDANSETRON 4 MG/2 ML (SDV) Z0FRAN IVP PRN; +PROPOFOL INJECTION 50 ML IV ONE; +ceFAZolin INJECTION 1,000 MG in WATER (STERILE) FOR INJECTION 10 ML IV ONE; +fentaNYL INJECTION 100 MCG/2 ML AMP IVP ONE; +fentaNYL INJECTION 100 MCG/2 ML AMP ONE; +morphine INJ 10 MG/ML 1ML (SYR OR VIAL) IVP ONE
--- NOTE | 2020-03-31 08:08 | Progress Note-Pre Operative ---
Pre-Operative Progress Note H&P Reviewed The H&P was reviewed, patient examined and no changes noted. Date Seen by Provider: Mar 31, 2020 Time Seen by Provider: 08:07 Date H&P Reviewed: Mar 31, 2020 Time H&P Reviewed: 08:07 Pre-Operative Diagnosis: left forearm skin lesion ANGELLA RODGERS DO Mar 31, 2020 08:07
[2020-03-31 08:10] VITALS: BP 144/93
[2020-03-31] MEDS: LACTATED RINGERS 1,000 ML IV PRN ×2 (08:25→11:04)
[2020-03-31 11:10] VITALS: BP 122/82
--- NOTE | 2020-03-31 11:16 | Progress Note-Post Operative ---
Post-Operative Progess Note Surgeon (s)/Out And Out Cigar Maker Hand (s) Surgeon ANGELLA RODGERS DO Out And Out Cigar Maker Hand: na Pre-Operative Diagnosis left forearm skin lesion Post-Operative Diagnosis same Procedure & Operative Findings Date of Procedure 03/31/20 Procedure Performed/Findings excision of left forearm lesion 4.2 x 6 cm Anesthesia Type mac c local Estimated Blood Loss Estimated blood loss (mL): min Specimens/Packing Specimens Removed skin lesion ANGELLA RODGERS DO Mar 31, 2020 11:16
[2020-03-31 11:20] VITALS: BP 110/53
[2020-03-31 11:30] VITALS: BP 121/63
[2020-03-31 11:35] VITALS: BP 113/56
--- NOTE | 2020-03-31 11:35 | Discharge Inst-Simple/Standard ---
Discharge Inst-Standard Discharge Medications New, Converted or Re-Newed RX: RX on Chart Patient Instructions/Follow Up Plan of Care/Instructions/FU: Criselda nurse for dressing change tomorrow. Criselda 1 week. Activity as Tolerated: Yes (keep wound clean and dry.) Discharge Diet: Regular Diet Other Inst to Patient Follow up Appt: Make appointment with Dr. Aburto's nurse tomorrow for dressing change. Need to do daily wet to dry and as needed. Criselda 1 week. Instructions: No strenuous activity. May shower in 24 hours, no tub bath or soaking. Use incentive spirometer at home as directed. No Smoking Skin/Wound Care: Wet to dry dressing daily and as needed. Symptoms to Report: Appetite Changes, Extremity Discoloration, Numbness/Tingling, Swelling Increased, Bleeding Excessive, Eyesight Changes, Pain Increased, Urine Color Change, Constipation(Persistent), Fever over 101 degree F, Pain/Pressure in chest, Urinating Difficulty, Cough Up/Vomit Blood, Heart Beat Irreg/Pounding, Pain/Pressure in jaw, Vaginal Bleeding Increase, Cramps in feet or legs, Lightheadedness, Pain/Pressure in shoulder, Diarrhea(Persistent), Memory Changes Suddenly, Questions/Concerns, Weight gain consecutive days, Dizziness/Fainting, Nausea/Vomiting, Shortness of Breath, Weight gain over 2 pounds If questions or concerns contact your physician Or seek help at emergency department. ANGELLA ABURTO DO Mar 31, 2020 11:31
--- NOTE | 2020-04-01 23:41 | OPERATIVE REPORT ---
DATE OF SERVICE: 03/31/2020 PREOPERATIVE DIAGNOSIS: Left forearm skin lesion. POSTOPERATIVE DIAGNOSIS: Left forearm skin lesion. PROCEDURE: Excision of left forearm lesion 4.2 x 6 cm. SURGEON: Angella Aburto DO ANESTHESIA: MAC with local. ESTIMATED BLOOD LOSS: Minimal. COMPLICATIONS: None. INDICATIONS: The patient is a 55-year-old female with large skin lesion with some slight surrounding erythematous changes to the skin, which she was discussed excision. She understands possible not able to close the skin after excision. She understands and wishes to proceed. Consent was signed in the chart. DESCRIPTION OF PROCEDURE: The patient was taken to the operating suite. She was prepped and draped in sterile fashion. Surgical pause was performed. Local anesthetic was infiltrated around the lesion. An elliptical incision measuring 4.2 x 6 cm was used to excise the skin. Cautery was used to cut through the subcutaneous tissues, removing the overall area. The specimen was labeled short suture superior, long suture lateral. The skin edges were then mobilized for closure. Defect was too large for closure. Therefore, the area was irrigated and dried. Hemostasis was achieved. The wound was then packed in a wet to dry fashion and sterile bandage was applied. The patient tolerated procedure well without any complications, taken to recovery room in stable condition. The patient was discussed need for wound care and possible skin grafting in the near future. Job ID: [id number] DocumentID: [id number] Dictated Date: 04/01/2020 16:32:26 Tool Dispatcher Date: 04/01/2020 23:40:55 Dictated By: ANGELLA ABURTO DO
--- NOTE | 2020-04-04 15:52 | Anesthesia-General Post-Op ---
MAC Significant Intra-Op Events Notes postop addendum for 03/31/19 at 1200 Patient Condition Mental Status/LOC: Same as Preop Cardiovascular: Satisfactory Nausea/Vomiting: Absent Respiratory: Satisfactory Pain: Controlled Complications: Absent Post Op Complications Complications None Follow Up Care/Instructions Patient Instructions None needed. Anesthesiology Discharge Order Discharge Order Patient is doing well, no complaints, stable vital signs, no apparent adverse anesthesia problems. No complications reported per nursing. CASSI OCONNOR SUPPLY PLANNER Apr 04, 2020 15:52
== END ==
LOC: SDC 07:53
PROVIDERS: ATTEND Surgery
DX: C44.629 Squamous cell carcinoma of skin of left upper limb, including shoulder (principal); L57.8 Other skin changes due to chronic exposure to nonionizing radiation; I10 Essential (primary) hypertension; F32.9 Major depressive disorder, single episode, unspecified; F17.210 Nicotine dependence, cigarettes, uncomplicated; Z79.899 Other long term (current) drug therapy
CPT/HCPCS: 87081; 88305

== ENCOUNTER 2020-04-03 09:00 | Outpatient (RCR) | payer BC ==
[2020-04-02 09:48] VITALS: BP 142/82
[~2020-04-03] VITALS: Ht 177.8 cm; Wt 90.9 kg
[~2020-04-03 09:00] MED LIST changes: -LIDOCAINE/EPI 1%-1:100,000 (XYLOCAINE) 50 ML ONE; -LISI40TA PO; +LISI40TA9 PO; -MEPERIDINE (DEMEROL) INJ 50 MG/ML IVP ONE; -MIDAZOLAM 2 MG/2 ML (VERSED) VIAL ONE; -ONDANSETRON 4 MG/2 ML (SDV) Z0FRAN IVP PRN; -PROPOFOL INJECTION 50 ML IV ONE; -ceFAZolin INJECTION 1,000 MG in WATER (STERILE) FOR INJECTION 10 ML IV ONE; -fentaNYL INJECTION 100 MCG/2 ML AMP IVP ONE; -fentaNYL INJECTION 100 MCG/2 ML AMP ONE; -morphine INJ 10 MG/ML 1ML (SYR OR VIAL) IVP ONE
[2020-04-03 09:30] VITALS: BP 140/88
== END 2020-07-01 | disposition home or self-care (01) ==
LOC: SDC 09:00
PROVIDERS: ATTEND Surgery
DX: Z01.89 Encounter for other specified special examinations (principal)
CPT/HCPCS: 99212

== ENCOUNTER 2022-05-10 00:16 | Inpatient (IN) | payer BC ==
[~2022-05-10] VITALS: Ht 177.8 cm; Wt 92.5 kg
[~2022-05-10 00:16] MED LIST changes: +PARO-124 PO; +PARO-135 PO; -PARO-49 PO; -PARO40TA PO
--- NOTE | 2022-05-10 00:25 | ED Chest Pain ---
General Chief Complaint: Chest Pain Stated Complaint: STEMI Source: patient, EMS Exam Limitations: no limitations History of Present Illness Date Seen by Provider: May 10, 2022 Time Seen by Provider: 00:14 Initial Comments 57-year-old female presents to the hospital via EMS for chest pain. Symptoms woke her up at about 11 PM this evening. Crushing pressure in her mid central chest with radiation to bilateral arms. Associated with some shortness of breath. No fevers or chills. She states she has had heart attack in the past several years ago. She does not have any heart stents to her knowledge. History of high blood pressure high cholesterol. She does smoke. EMS reports STEMI from the field. All other systems reviewed and negative except documented per HPI. Voice recognition software was used to help create this chart Allergies and Home Medications Allergies Coded Allergies: No Known Drug Allergies (Unverified , 07/27/13) Patient Home Medication List Home Medication List Reviewed: Yes Amlodipine Besylate (Amlodipine Besylate) 10 Mg Tablet, 10 MG PO DAILY, (Reported) Entered as Reported by: CHERELLE PARDO on 03/28/20 110 Hydrochlorothiazide (Hydrochlorothiazide) 12.5 Mg Tablet, 12.5 MG PO DAILY, (Reported) Entered as Reported by: CHERELLE PARDO on 03/28/20 110 Hydrocodone/Acetaminophen (Hydrocodone-Acetamin 5-325 mg) 1 Each Tablet, 1 EACH PO Q6H Prescribed by: ANGELLA RODGERS on 03/31/20 1125 Lisinopril (Lisinopril) 40 Mg Tablet, 40 MG PO DAILY, (Reported) Entered as Reported by: CHERELLE PARDO on 03/28/20 110 Paroxetine HCl (Paxil) 20 Mg Tablet, 20 MG PO DAILY, (Reported) Entered as Reported by: CHERELLE PARDO on 03/28/20 110 Paroxetine HCl (Paxil) 40 Mg Tablet, 40 MG PO DAILY, (Reported) Entered as Reported by: CHERELLE PARDO on 03/28/20 1102 Review of Systems Review of Systems Constitutional: no symptoms reported Cardiovascular: Chest Pain Past Smybili-Thcjox-Tzuyai Hx Patient Social History Tobacco Use?: Yes Use of E-Cig and/or Vaping dev: No Substance use?: No Alcohol Use?: No Immunizations Up To Date PED Vaccines UTD: No Seasonal Allergies Seasonal Allergies: Yes (at times) Past Medical History Surgeries: Yes (d&c with ablation, c/s x3,) Appendectomy, Section Respiratory: No Cardiac: Yes Hypertension Neurological: No Genitourinary: No Gastrointestinal: No Musculoskeletal: No Endocrine: No HEENT: Yes (dentures, glasses) Cancer: No Psychosocial: Yes Depression Integumentary: Yes (lesion left forearm) Blood Disorders: No Family Medical History Reviewed Nursing Family Hx No Pertinent Family Hx Physical Exam Vital Signs Vital Signs - First Documented 05/10/22 05/10/22 00:19 00:32 Temp 36.2 Pulse 77 Resp 16 B/P (MAP) 134/88 (103) Pulse Ox 87 O2 Delivery Room Air O2 Flow Rate 2.00 Capillary Refill : Height, Weight, BMI Height: 5'8" Weight: 185lbs. oz. 83.215444fd; 28.75 BMI Method:Stated General Appearance: No Apparent Distress HEENT: Normal ENT Inspection, Pharynx Normal Neck: Full Range of Motion, Normal Inspection, Non Tender, Supple Respiratory: Chest Non Tender, Lungs Clear, Normal Breath Sounds, No Accessory Muscle Use, No Respiratory Distress Cardiovascular: No Edema, No Gallop, No JVD, Normal Peripheral Pulses, Tachycardia Gastrointestinal: Normal Bowel Sounds, No Organomegaly, No Pulsatile Mass, Non Tender, Soft Extremity: Normal Capillary Refill, Normal Inspection, Normal Range of Motion, Non Tender Skin: Normal Color, Diaphoresis Critical Care Note Critical Care Total Time (minutes) 30 Progress/Results/Core Measures Results/Orders Lab Results Laboratory Tests Test 05/10/22 00:23 Range/Units White Blood Count 12.1 H 4.3-11.0 10^3/uL Red Blood Count 4.74 3.80-5.11 10^6/uL Hemoglobin 14.7 11.5-16.0 g/dL Hematocrit 45 35-52 % Mean Corpuscular Volume 94 80-99 fL Mean Corpuscular Hemoglobin 31 25-34 pg Mean Corpuscular Hemoglobin Concent 33 32-36 g/dL Red Cell Distribution Width 15.6 H 10.0-14.5 % Platelet Count 238 130-400 10^3/uL Mean Platelet Volume 9.3 9.0-12.2 fL Immature Granulocyte % (Auto) 1 % Neutrophils (%) (Auto) 59 42-75 % Lymphocytes (%) (Auto) 32 12-44 % Monocytes (%) (Auto) 7 0-12 % Eosinophils (%) (Auto) 2 0-10 % Basophils (%) (Auto) 1 0-10 % Neutrophils # (Auto) 7.1 1.8-7.8 10^3/uL Lymphocytes # (Auto) 3.8 1.0-4.0 10^3/uL Monocytes # (Auto) 0.8 0.0-1.0 10^3/uL Eosinophils # (Auto) 0.2 0.0-0.3 10^3/uL Basophils # (Auto) 0.1 0.0-0.1 10^3/uL Immature Granulocyte # (Auto) 0.1 0.0-0.1 10^3/uL Prothrombin Time 12.5 12.2-14.7 SEC INR Comment 0.9 0.8-1.4 Activated Partial Thromboplast Time 29 24-35 SEC Sodium Level 140 135-145 MMOL/L Potassium Level 2.9 L 3.6-5.0 MMOL/L Chloride Level 103 98-107 MMOL/L Carbon Dioxide Level 25 21-32 MMOL/L Anion Gap 12 5-14 MMOL/L Blood Urea Nitrogen 10 7-18 MG/DL Creatinine 0.74 0.60-1.30 MG/DL Estimat Glomerular Filtration Rate 93 BUN/Creatinine Ratio 14 Glucose Level 149 H 70-105 MG/DL Calcium Level 7.8 L 8.5-10.1 MG/DL Corrected Calcium 8.5 8.5-10.1 MG/DL Magnesium Level 1.8 1.6-2.4 MG/DL Total Bilirubin 0.4 0.1-1.0 MG/DL Aspartate Amino Transf (AST/SGOT) 14 5-34 U/L Alanine Aminotransferase (ALT/SGPT) 14 0-55 U/L Alkaline Phosphatase 52 40-136 U/L Myoglobin 22.9 10.0-92.0 NG/ML Troponin I < 0.028 <0.028 NG/ML Total Protein 5.1 L 6.4-8.2 GM/DL Albumin 3.1 L 3.2-4.5 GM/DL My Orders Orders - KRISTIN MADDEN DO Ekg Tracing (05/10/22 00:18) Fentanyl Inj (Sublimaze Injection) (05/10/22 00:30) Cbc With Automated Diff (05/10/22 00:25) Magnesium (05/10/22 00:25) Chest 1 View, Ap/Pa Only (05/10/22 00:25) Ekg Tracing (05/10/22 00:25) Comprehensive Metabolic Panel (05/10/22 00:25) Myoglobin Serum (05/10/22 00:25) Protime With Inr (05/10/22:25) Partial Thromboplastin Time (05/10/22 00:25) O2 (05/10/22 00:25) Monitor-Rhythm Ecg Trace Only (05/10/22 00:25) Lipid Panel (05/11/22 06:00) Ed Iv/Invasive Line Start (05/10/22 00:25) Troponin I [place] (05/10/22 00:25) Heparin Injection (Heparin Injection) (05/10/22 00:30) Fentanyl Inj (Sublimaze Injection) (05/10/22 00:27) Heparin (Bolus Per Protocol) (Heparin (B (05/10/22 00:27) Medications Given in ED Current Medications Medications Dose Ordered Sig/Lorena Route Start Time Stop Time Status Last Admin Dose Admin Fentanyl Citrate 50 mcg ONCE ONCE IVP 05/10/22 00:30 05/10/22 00:31 DC 05/10/22 00:37 50 MCG Heparin Sodium (Porcine) 10,000 unit STK-MED ONCE .ROUTE 05/10/22 00:27 05/10/22 00:30 DC 05/10/22 00:40 5,000 UNIT Nitroglycerin 0.4 mg STK-MED ONCE SL 05/10/22 00:35 05/10/22 00:39 DC 05/10/22 00:41 0.4 MG Vital Signs/I&O 05/10/22 05/10/22 00:19 00:32 Temp 36.2 Pulse 77 Resp 16 B/P (MAP) 134/88 (103) Pulse Ox 87 96 O2 Delivery Room Air Nasal Cannula O2 Flow Rate 2.00 Comment My independent interpretation of the EKG shows some wandering baseline however there are ST elevations in 2 3 aVF and reciprocal changes consistent with STEMI. Rate of 76 bpm. Normal axis. Prolonged QTc. Prolonged OH. No ectopy. Departure Communication (Admissions) Spoke to Dr Kennedy ar 0020. labor relations worker has already been called by nursing. He is currently hemodynamically stable and have a significant amount of pain. She received 6 mg of morphine prior to arrival so we will go ahead with fentanyl better. She is already on aspirin via EMS. EKG does show inferior STEMI. Labs are pending, chest x-ray pending. Plan for Private Investigator Surveillance as soon as they arrive. Pt taken to pathology laboratory aides teacher in stable condition. Impression Primary Impression: STEMI (ST elevation myocardial infarction) Qualified Codes: I21.19 - ST elevation (STEMI) myocardial infarction in volving other coronary artery of inferior wall Additional Impression: Abnormal endometrial ultrasound Disposition: ADMITTED INPATIENT Condition: Stable Admissions Decision to Admit Reason: Admit from ER (General) Decision to Admit/Date: May 10, 2022 Time/Decision to Admit Time: 00:20 Departure-Patient Inst. Referrals: CAMILLA CRAWFORD MD (PCP/Family) Primary Care Physician KRISTIN MADDEN DO May 10, 2022 00:25
[2022-05-10] MEDS ORDERED: fentaNYL INJ 100 MCG/2 ML AMP ONE ×3 (00:27→10:57)
[2022-05-10] MEDS ORDERED: HEParin 1000 UNIT/ML (10ML VIAL) FOR BOLUS ONE ×3 (00:27→10:58)
[2022-05-10] MEDS ORDERED: MIDAZOLAM 5 MG/5 ML (VERSED) VIAL ONE ×2 (00:29→10:57)
[2022-05-10] MEDS ORDERED: LIDOCAINE 1% INJ 20 ML VIAL ONE ×2 (00:30→10:50)
[2022-05-10] MEDS ORDERED: HEParin (CATH LAB) 2,000 ML IV ONE ×2 (00:30→10:50)
[2022-05-10] MEDS ORDERED: fentaNYL INJ 100 MCG/2 ML AMP IVP ONE (00:30)
[2022-05-10] MEDS ORDERED: NITRO DRIP 25000 MCG/D5W 250 ML IV ONE ×3 (00:30→10:58)
[2022-05-10] MEDS ORDERED: NS IV 1000 ML 1,000 ML ONE ×2 (00:30→10:50)
[2022-05-10 00:32] LABS: BASOPHILS # (AUTO) 0.1 10^3/uL (0.0-0.1); BASOPHILS % (AUTO) 1 % (0-10); EOSINOPHILS # (AUTO) 0.2 10^3/uL (0.0-0.3); EOSINOPHILS % (AUTO) 2 % (0-10); HEMATOCRIT 45 % (35-52); HEMOGLOBIN 14.7 g/dL (11.5-16.0); LYMPHOCYTES # (AUTO) 3.8 10^3/uL (1.0-4.0); LYMPHOCYTES % (AUTO) 32 % (12-44); MEAN CORPUSCULAR HEMOGLOBIN 31 pg (25-34); MEAN CORPUSCULAR HGB CONC 33 g/dL (32-36); MEAN CORPUSCULAR VOLUME 94 fL (80-99); MEAN PLATELET VOLUME 9.3 fL (9.0-12.2); MONOCYTES # (AUTO) 0.8 10^3/uL (0.0-1.0); MONOCYTES % (AUTO) 7 % (0-12); NEUTROPHILS # (AUTO) 7.1 10^3/uL (1.8-7.8); NEUTROPHILS % (AUTO) 59 % (42-75); PLATELET COUNT 238 10^3/uL (130-400); WHITE BLOOD COUNT 12.1 10^3/uL (4.3-11.0)
[2022-05-10] MEDS ORDERED: NITROGLYCERIN 0.4 MG SL TABS BTL 25'S SL ONE (00:35)
[2022-05-10] MEDS ORDERED: TICAGRELOR 90 MG TABLET (BRILINTA) PO ONE (00:38)
[2022-05-10 00:42] LABS: ALBUMIN 3.1 GM/DL (3.2-4.5)
[2022-05-10 00:43] LABS: POTASSIUM 2.9 MMOL/L (3.6-5.0)
[2022-05-10 00:44] LABS: CALCIUM 7.8 MG/DL (8.5-10.1)
[2022-05-10 00:45] LABS: TOTAL PROTEIN 5.1 GM/DL (6.4-8.2)
--- NOTE | 2022-05-10 00:45 | Cardiology History & Physical ---
HPI-Cardiology Cardiology Consultation Date of Consultation 05/10/22 Date of Admission Time Seen by Provider: 00:43 Indication: Acute myocardial infarction HPI 57-year-old lady with history of tobaccoism, hypertension and coronary artery disease. Started to have chest pain at night, stabbing chest pain in the retrosternal area associated with mild dyspnea, took nitroglycerin, still having dull achiness and heaviness in the retrosternal area. Came into the emergency room and noted to have ST elevation myocardial infarction in the inferior wall. On my evaluation she was still having active pain PMH-Cardiology Immunizations Up To Date Date of Influenza Vaccine: Dec 10, 2019 Seasonal Allergies Seasonal Allergies: Yes (at times) Surgeries Yes (d&c with ablation, c/s x3,) Section Respiratory No Cardiovascular Yes Heart Attack Neurological No Genitourinary No Gastrointestinal No Musculoskeletal No Endocrine No HEENT Yes (dentures, glasses) Cancer No Psychosocial Yes Depression Integumentary Yes (lesion left forearm) Blood Transfusions No Social History Patient Social History Marrital Status: Smoking: Current every day smoker Have you traveled recently?: No Alcohol Use?: No Family Hx Significant Family History: No Pertinent Family Hx ROS-Cardiology Review of Systems General: No Chills, No Night Sweats, No Fatigue, No Malaise, No Appetite HEENT: No Head Aches, No Visual Changes, No Eye Pain, No Ear Pain, No Dysphasia, No Sinus Congestion, No Post Nasal Drip, No Sore Throat Pulmonary: Dyspnea; No Cough, No Pleuritic Chest Pain Cardiovascular: Chest Pain; No: Palpitations, Orthopnea, Paroxysmal Noc. Dyspnea, Edema, Lt Headedness Gastrointestinal: No: Nausea, Vomiting, Abdominal Pain, Diarrhea, Constipation, Melena, Hematochezia Genitourinary: No Dysuria, No Frequency, No Incontinence, No Hematuria, No Retention Musculoskeletal: No: neck pain, shoulder pain, arm pain, back pain, hand pain, leg pain, foot pain Neurological: No: Weakness, Numbness, Incoordination, Change in speech, Confusion, Seizures Home Medications & Allergies Allergies: Coded Allergies: No Known Drug Allergies (Unverified , 07/27/13) Home Medication List Reviewed: Yes Exam-Cardiology Vital Signs Vital Signs Date Time Temp Pulse Resp B/P (MAP) Pulse Ox O2 Delivery O2 Flow Rate FiO2 05/10/22 00:32 96 Nasal Cannula 2.00 05/10/22 00:19 36.2 77 16 134/88 (103) Exam General Appearance: Alert, Oriented X3, Cooperative, No Acute Distress HEENT: Atraumatic, PERRLA Respiratory: Clear to Auscultation, Normal Air Movement Cardiovascular: Regular Rate, Normal S1, Normal S2, No Murmurs Abdominal: Normal Bowel Sounds, Soft, No Tenderness, No Hepatosplenomegaly, No Masses Extremities: No Clubbing, No Cyanosis, No Edema, Normal Pulses, No Tenderness/Swelling Skin: No Rashes, No Breakdown, No Significant Lesion Neuro: Normal Gait, Normal Speech, Strength at 5/5 X4 Ext, Normal Tone, Sensation Intact Psych/Mental Status: Mental Status NL, Mood NL Results Labs Labs Laboratory Tests 05/10/22 00:23: White Blood Count 12.1H, Red Blood Count 4.74, Hemoglobin 14.7, Hematocrit 45, Mean Corpuscular Volume 94, Mean Corpuscular Hemoglobin 31, Mean Corpuscular Hemoglobin Concent 33, Red Cell Distribution Width 15.6H, Platelet Count 238, Mean Platelet Volume 9.3, Immature Granulocyte % (Auto) 1, Neutrophils (%) (Auto) 59, Lymphocytes (%) (Auto) 32, Monocytes (%) (Auto) 7, Eosinophils (%) (Auto) 2, Basophils (%) (Auto) 1, Neutrophils # (Auto) 7.1, Lymphocytes # (Auto) 3.8, Monocytes # (Auto) 0.8, Eosinophils # (Auto) 0.2, Basophils # (Auto) 0.1, Immature Granulocyte # (Auto) 0.1, Sodium Level 140, Potassium Level 2.9L, Chloride Level 103, Albumin 3.1L A/P-Cardiology Admission Diagnosis Acute ST elevation myocardial infarction Coronary artery disease Hypertension Tobaccoism Admission Status: Inpatient Order (span 2 midnights) Reason for Inpatient Admission: Acute ST elevation myocardial infarction Assessment/Plan Acute ST elevation myocardial infarction in the inferior wall Planning for emergency cardiac catheterization Coronary artery disease, reporting history of myocardial infarction in 2011, did not require any intervention. Planning for emergency cardiac catheterization Hypertension, maintained on hydrochlorothiazide, metoprolol and amlodipine Questionable hyperlipidemia, will start Lipitor 80 mg daily Tobaccoism, educated on smoking cessation Clinical Quality Measures AMI/AHF: ASA po Prior to arrival: Yes YRIS JOSEPH MD May 10, 2022 00:45
--- NOTE | 2022-05-10 00:46 | Cardiac Procedure Note-CS/ASA ---
Pre-Procedure Note Pre-Op Procedure Note Date of Available H&P: May 10, 2022 Date H&P Reviewed: May 10, 2022 Time H&P Reviewed: 00:45 History & Physical: H&P Reviewed, Patient Examed, No changes noted Pre-Operative Diagnosis: Acute ST elevation myocardial infarction Conscious Sedation Pre-Proced Time 00:46 ASA Score 3 For ASA 3 and 4: Consider anesthesia and medical clearance. Also, for patients with a history of failed moderate sedation consider anesthesia. Airway Lungs Heart ASA score ASA 1: a normal healthy patient ASA 2: a patient with a mild systemic disease (mid diabetes, controlled hypertension, obesity ASA 3: a patient with a severe systemic disease that limits activity (angina, COPD, prior Myocardial infarction) ASA 4: a patient with an incapacitating disease that is a constant threat to life (CHF, renal failure) ASA 5: a moribund patient not expected to survive 24 hrs. (ruptured aneurysm) ASA 6: a declared brain- patient whose organs are being harvested. For emergent operations, add the letter E after the classification Mallampati Classification Grade 3 Sedation Plan Analgesia, Amnesia, Plan communicated to team members, Discussed options with patient/fam, Discussed risks with patient/fam The patient is an appropriate candidate to undergo the planned procedure, sedation, and anesthesia. The patient immediately re-assessed prior to indication. YRIS JOSEPH MD May 10, 2022 00:46
[2022-05-10 00:47] LABS: BILIRUBIN,TOTAL 0.4 MG/DL (0.1-1.0)
[2022-05-10 00:48] LABS: CREATININE SERUM 0.74 MG/DL (0.60-1.30); INR 0.9 (0.8-1.4); PROTHROMBIN TIME PATIENT 12.5 SEC (12.2-14.7)
[2022-05-10 00:51] LABS: MAGNESIUM 1.8 MG/DL (1.6-2.4)
[2022-05-10] MEDS ORDERED: POTASSIUM CL 10MEQ/50ML IVPB 100 ML IV ONE ×2 (01:07→01:10)
[2022-05-10] MEDS ORDERED: ADENOSINE 6 MG/2 ML (ADENOCARD) VIAL IV ONE (01:15)
[2022-05-10] MEDS ORDERED: ADENOSINE 90 MG/30 ML (ADENOSCAN) VIAL IV ONE (01:16)
[2022-05-10] MEDS ORDERED: PATIENT MAY USE OWN MEDS, ALL PO SCH (01:30)
--- NOTE | 2022-05-10 01:40 | Cardiac Cath Report ---
Cardiac Cath Report Physician (s)/Solar Field Service Technician (s) Physician YRIS JOSEPH MD Pre-Procedure Diagnosis Pre-Procedure Diagnosis: Acute ST elevation myocardial infarction Post-Procedure Note Procedure Start Date: May 10, 2022 Name of Procedure: Left heart catheterization Emergency balloon angioplasty to the right coronary artery Findings/Procedure Note PROCEDURE NOTE: 57-year-old lady with history of hypertension, coronary artery disease and tobaccoism admitted with acute ST elevation myocardial infarction in the inferior wall. Emergency cardiac catheterization was advised. After explaining the procedure to the patient, all pros and cons were explained, all questions were answered. The patient signed the consent and then she was placed in the cardiac catheterization laboratory. Groin was prepped in SL fashion local anesthesia was used. Sheath placed in the right femoral artery. Janet' right and left catheter were used to access the coronary system. Pig tail was used to access the left ventricular cavity. Left ventriculogram was done Janet right guide was used, patient has total occlusion at the distal right PDA with a thrombus. BMW wire was advanced and maneuvered distally then I used 2.5 x 20 mm balloon to push the thrombus with multiple inflation. Door to establishment of flow was 60 minutes. Patient was given intracoronary nitroglycerin and intracoronary adenosine. Angiogram showed resolution of the thrombus but continued to have slow flow distally with TAWANNA II flow At the end of the procedure the sheath was removed. Closure device was deployed FINDINGS: Hemodynamics LV 132/28, end-diastolic pressure of 28 Aorta 128/74 mean of 101 ANATOMY: Left Main is free of obstructive disease Left Anterior Descending slightly tortuous with less than 10% stenosis nonobstructive disease Left Circumflex is nondominant artery with no obstructive disease Right Coronary Artery is large dominant artery with total occlusion at the distal right PDA with a thrombus successful balloon angioplasty with reestablish ment of the flow. The distal right coronary artery has 10% stenosis, no residual stenosis noted in the right PDA, TAWANNA II flow LV Gram was done showing normal left ventricular size, ejection fraction 50% PERCUTANEOUS INTERVENTION: Pre stenosis 100% Post Stenosis 0% Pre TAWANNA flow 0 Post TAWANNA flow 2 Dominance right coronary artery CONCLUSION: Acute ST elevation myocardial infarction in the inferior wall with successful balloon angioplasty to the distal right PDA with door to reestablishment of flow 60 minutes Total occlusion at the distal right PDA successful balloon angioplasty and reestablishment of flow flow, slow flow distally due to distal embolization Otherwise mild coronary artery disease nonobstructive disease Normal left ventricular size, ejection fraction 50% DISCUSSION AND RECOMMENDATION: Continue with maximizing medical therapy with aspirin and Brilinta. Evaluate 2D echo Anesthesia Type: Conscious Sedation Estimated blood loss (mL): 25 ml Contrast Amount: 90 ml Total Radiation Dose: 942 mGy Post-Procedure Diagnosis Post-operative diagnosis: Acute ST elevation myocardial infarction in the inferior wall Coronary artery disease Hypertension Tobaccoism YRIS JOSEPH MD May 10, 2022 01:40
[2022-05-10] MEDS: POTASSIUM CL 10MEQ/50ML IVPB 50 ML IV SCH ×4 (02:08→05:50)
--- NOTE | 2022-05-10 02:24 | Tele-ICU Progress Note ---
Subjective Date Seen by a Provider: May 10, 2022 Time Seen by a Provider: 02:17 Subjective/Events-last exam (Tele-ICU Physician , consultation) Available chart/ vitals / labs / Images reviewed H&P is from ER notes Patient's information available about PMH, allergy reviewed in EMR. ROS as per chart and RN report Video assessment done using teleICU camera, rest of exam as per RN Discussed with RN. She is a 57-year-old female with past medical history of hypertension, coronary artery disease and tobacco abuse disorder presented to the emergency room with chest pain and EKG showed ST elevation myocardial infarction in the inferior wall. Patient patient immediately taken to the cardiac catheterization lab and cardiac catheterization was done and found to have a right coronary artery distal area thrombus and stenosis. Thrombus was aspirated and balloon angioplasty was done. Currently she is admitted to the intensive care unit. Patient still complains of 6 out of 10 chest and back pain. Blood pressure is stable. I am evaluating the patient for ICU protocol but there is no telemetry ICU consult on this patient. Impression 1. STEMI 2. Status post balloon angioplasty of RCA 3. Residual chest pain 4. Tobacco abuse disorder 5. Hypertension. Recommendations 1. We will give her a small dose of morphine for chest pain 2. STEMI management per cardiology. We will see the patient on a as needed basis. Sepsis Event Evaluation Height, Weight, BMI Height: 5'8" Weight: 185lbs. oz. 83.111049ol; 28.00 BMI Method:Stated Exam Exam Patient acknowledged, consented, and participated in this virtual visit which was conducted using real time audio/video Vital Signs Date Time Temp Pulse Resp B/P (MAP) Pulse Ox O2 Delivery O2 Flow Rate FiO2 05/10/22 00:32 96 Nasal Cannula 2.00 05/10/22 00:19 36.2 77 16 134/88 (103) 87 Room Air I & O 05/10/22 07:00 Intake Total 250 ml Balance 250 ml Height & Weight Height: 5'8" Weight: 185lbs. oz. 83.357154yb; 28.00 BMI Method:Stated General Appearance: No Apparent Distress HEENT: Normal ENT Inspection, Pharynx Normal Neck: Full Range of Motion, Normal Inspection, Non Tender, Supple Respiratory: Chest Non Tender, Lungs Clear, Normal Breath Sounds, No Accessory Muscle Use, No Respiratory Distress Cardiovascular: No Edema, No Gallop, No JVD, Normal Peripheral Pulses, Tachycardia Capillary Refill: Less Than 3 Seconds Extremity: Normal Capillary Refill, Normal Inspection, Normal Range of Motion, Non Tender Skin: Normal Color, Diaphoresis Other comments PE PER RN Results Lab Laboratory Tests 05/10/22 00:23 Assessment/Plan Assessment/Plan ABOVE Critical Care: Critically Ill Patient Time spent with patient (mins): 15 PATRICK BARRERA MD May 10, 2022 02:24
[2022-05-10] MEDS: NS IV 1000 ML 1,000 ML IV SCH ×4 (02:27→21:30)
[2022-05-10] MEDS ORDERED: NITROGLYCERIN 2% OINT 1 GM UNIT DOSE PACKET ONE (02:53)
[2022-05-10] MEDS: morphine INJ 4 MG/ML 1 ML (VIAL/SYRINGE) IVP PRN ×6 (02:56→21:44)
[2022-05-10] MEDS ORDERED: POTASSIUM CL 10MEQ/50ML IVPB 50 ML IV ONE (05:10)
[2022-05-10] MEDS ORDERED: morphine INJ 10 MG/ML 1ML (SYR OR VIAL) IVP STA (05:30)
[2022-05-10] MEDS: NITRO DRIP 25000 MCG/D5W 250 ML IV SCH (05:41)
[2022-05-10] MEDS ORDERED: morphine INJ 4 MG/ML 1 ML (VIAL/SYRINGE) IVP STA (05:43)
[2022-05-10] MEDS ORDERED: NITROGLYCERIN 2% OINT 1 GM UNIT DOSE PACKET TOP SCH (06:00)
--- NOTE | 2022-05-10 06:01 | Diagnostic Imaging Report ---
INDICATION: 57-year-old female with chest pain COMPARISONS: None FINDINGS: Single view of the chest is provided. Overlying external pacer pads are noted. Cardiac contour is normal. Background chronic parenchymal changes are seen. Some basilar atelectatic infiltrates are noted. Soft tissues and bony thorax are unremarkable. IMPRESSION: Background chronic parenchymal changes with some basilar atelectatic infiltrates but no confluent consolidations. Overlying pacer pad noted. Dictated by: Dictated on workstation # [id number]
[2022-05-10 07:15] LABS: HEMATOCRIT 43 % (35-52); HEMOGLOBIN 14.4 g/dL (11.5-16.0); MEAN CORPUSCULAR HEMOGLOBIN 32 pg (25-34); MEAN CORPUSCULAR HGB CONC 33 g/dL (32-36); MEAN CORPUSCULAR VOLUME 95 fL (80-99); MEAN PLATELET VOLUME 9.3 fL (9.0-12.2); PLATELET COUNT 231 10^3/uL (130-400); WHITE BLOOD COUNT 11.1 10^3/uL (4.3-11.0)
[2022-05-10 07:48] LABS: POTASSIUM 4.4 MMOL/L (3.6-5.0)
[2022-05-10 07:49] LABS: CALCIUM 7.7 MG/DL (8.5-10.1)
[2022-05-10 07:54] LABS: CREATININE SERUM 0.66 MG/DL (0.60-1.30)
[2022-05-10 07:56] LABS: MAGNESIUM 1.9 MG/DL (1.6-2.4)
[2022-05-10] MEDS: ASPIRIN E.C. 81 MG (ECOTRIN) TAB PO SCH (08:14)
[2022-05-10] MEDS: TICAGRELOR 90 MG TABLET (BRILINTA) PO SCH ×2 (08:14→20:50)
[2022-05-10] MEDS: ISOSORBIDE MONONITRATE 30 MG (IMDUR) TAB PO SCH (08:14)
[2022-05-10] MEDS: amLODIPine 5 MG (NORVASC) TAB PO SCH (08:14)
[2022-05-10] MEDS: PANTOPRAZOLE 40 MG (PROTONIX) TAB PO SCH (08:14)
[2022-05-10] MEDS: ONDANSETRON 4 MG/2 ML (SDV) Z0FRAN IVP PRN ×2 (09:59→18:00)
--- NOTE | 2022-05-10 10:26 | Consultation - Hospitalist ---
JOSE PAREDES 05/10/22 1026: HPI History of Present Illness: HPI/Chief Complaint Patient is being seen in consultation from Dr. Kennedy, Cardiology, for medical management of patient. 57 year old female with a past medical history of HTN and tobaccism who awoke last night (05/09) with severe retrosternal chest pain that radiated to the back. Patient also endorsed Shortness of breath. Patient had never had something like this happen before. While trying to get dressed with her assisting, she knew this was something severe and that she needed to go to the hospital. Patient arrived to [facility] ER via ambulance and was found to have ST Elevation on EKG and immediately underwent ME protocol. Patient was taken for emergency heart catheterization and underwent RCA balloon angioplasty. Patient is currently resting in bed. States she feels fatigued and is having some residual chest pain, but overall feels much better than last night. Source: patient Exam Limitations: no limitations Date Seen 05/10/22 Attending Physician Josy Maria MD PCP Admitting Physician: Orly Kennedy MD Attending Physician: Orly Kennedy MD Referring Physician Dr. Kennedy Date of Admission May 10, 2022 at 01:27 Home Medications & Allergies Home Medications Amlodipine 10mg QD Cyclobenzaprine 10 HS HCTZ 25mg AM Toprol 50mg AM Paxil 60 QD Lisinopril 40 QD Varenicline Reviewed patient Home Medication Reconciliation performed by pharmacy medication reconciliations garage door technician and/or nursing. Patients Allergies have been reviewed. Allergies Allergies Coded Allergies No Known Drug Allergies (Unverified07/27/13) Past Gwvifxk-Jbzsic-Epiklp Hx Patient Social History Marrital Status: Tobacco Use?: Yes Tobacco type used: Cigarettes Smoking Status: Current Someday Smoker (5 cigs/ day was at over a PPD; trying to quit, on varenicline) Use of E-Cig and/or Vaping dev: No Substance use?: Yes Substance type: Marijuana Substance frequency: Couple times a week Alcohol Use?: Yes Alcohol type: Hard Liquor (12 drinks/week) Additional alcohol type: "3 glasses every other day" Alcohol Frequency: Couple times a week (~12 drinks/week) Pt feels they are or have been: No Immunizations Up To Date Date of Influenza Vaccine: Dec 09, 2021 PED Vaccines UTD: No Seasonal Allergies Seasonal Allergies: Yes (at times) Current Status status: No status: No Communicates: Verbally Primary Language: Bengali Preferred Spoken Language: Bengali Is interpretation needed?: No Implanted or Applied Medical D: None Past Medical History Surgeries: Appendectomy, Section Hypertension Chronic Back Pain (Lumbago) Skin (Surgical excision, forearm, unsure what type) Depression Blood Disorders: No Family Medical History Reviewed Nursing Family Hx Heart Disease (dad), Stroke (mom+dad) Review of Systems Constitutional: No chills, No diaphoresis; weakness EENTM: other (no BERMAN); No vision loss Respiratory: No cough, No short of breath Cardiovascular: chest pain (improved, still present); No palpitations Gastrointestinal: No abdominal pain, No constipation, No diarrhea Genitourinary: No dysuria, No frequency, No hematuria Musculoskeletal: back pain (chronic) Psychiatric/Neurological: Denies Anxiety, Denies Depressed Physical Exam Physical Exam Vital Signs Vital Signs - First Documented 05/10/22 05/10/22 00:19 00:32 Temp 36.2 Pulse 77 Resp 16 B/P (MAP) 134/88 (103) Pulse Ox 87 O2 Delivery Room Air O2 Flow Rate 2.00 Capillary Refill : Less Than 3 Seconds Height, Weight, BMI Height: 5'8" Weight: 185lbs. oz. 83.125906sx; 30.58 BMI Method:Stated General Appearance: No Apparent Distress, WD/WN HEENT: PERRL/EOMI (EOMI), Normal ENT Inspection Neck: Normal Inspection, Non Tender Respiratory: Lungs Clear, Normal Breath Sounds, No Accessory Muscle Use, No Respiratory Distress Cardiovascular: Regular Rate, Rhythm, No Murmur, Normal Peripheral Pulses Gastrointestinal: Non Tender, Soft Rectal: Deferred Extremity: Non Tender, No Calf Tenderness, Other (trace pedal edema bilaterally) Neurologic/Psychiatric: Alert, Oriented x3, Normal Mood/Affect Skin: Normal Color, Warm/Dry Results Results/Procedures Labs Laboratory Tests 05/10/22 00:23 05/10/22 07:10 Patient resulted labs reviewed. Imaging: Reviewed Imaging Films, Reviewed Imaging Report Assessment/Plan Assessment and Plan Assess & Plan/Chief Complaint Acute STEMI of Inferior Wall S/P RCA Balloon Angioplasty CAD - Patient underwent Heart Catheterization last night with balloon angioplasty to RCA. Initially the chest pain receded. However patient began having severe chest pain again in the late morning and the decision was made to undergo a repeat heart cath. Patient was found to have a thrombus at the distal right PDA. A thrombectomy was successfully performed with reestablishment of flow with no residual stenosis. - Management per Cardiology team - Patient was having some expiratory wheezing in bilateral bases. Will start patient on some breathing treatments. HTN - Home medications on file. Patient currently requiring less HTN meds than at baseline. Management per Cardiology team. HLD - Patient started on Atorvastatin 80 with a goal LDL <70 with new hx of cardiac event. Depression - Home meds are on file. Will plan on restarting once patient's cardiac condition is stable. Tobaccism -Patient on home varenicline. Currently down to 5x cigarettes a day. Currently declines nicotine patches. Lumbago - On cyclobenzaprine at home. Pain is currently tolerable. Will add APAP prn. Continue to monitor. PPI Prophylaxis: Protonix DVT Prophylaxis: Per cardiology team Critical Care Critically Ill Patient Clinical Quality Measures AMI/AHF: ASA po Prior to arrival: Yes SYLVIA POWELL DO 05/11/22 0458: Assessment/Plan Assessment and Plan Assess & Plan/Chief Complaint Nebs for wheezing Cath today Smoking cessation Supervisory-Addendum Brief Verification & Attestation Participated in pt care: history, MDM, physical Personally performed: exam, history, MDM, supervision of care Care discussed with: Medical Student Procedures: n/a Results interpretation: Verified all documentation Verification and Attestation of Medical Student E/M Service A medical student performed and documented this service in my presence. I reviewed and verified all information documented by the medical student and made modifications to such information, when appropriate. I personally performed the physical exam and medical decision making. Sylvia Powell May 11, 2022,04:58 JOSE PAREDES May 10, 2022 10:26 SYLVIA POWELL DO May 11, 2022 04:58
[2022-05-10] MEDS ORDERED: VERAPAMIL 5 MG/2 ML (CALAN) VIAL IV ONE (10:57)
[2022-05-10] MEDS ORDERED: HYDR25TA4 PO (11:26)
[2022-05-10] MEDS ORDERED: METO50TA7 PO (11:26)
[2022-05-10] MEDS ORDERED: CYCL10TA25 PO (11:27)
[2022-05-10] MEDS ORDERED: ACET-2267 PO (11:31)
--- NOTE | 2022-05-10 11:36 | Cardiac Procedure Note-CS/ASA ---
Pre-Procedure Note Pre-Op Procedure Note Date of Available H&P: May 10, 2022 Date H&P Reviewed: May 10, 2022 Time H&P Reviewed: 11:36 History & Physical: H&P Reviewed, Patient Examed, No changes noted Pre-Operative Diagnosis: CP Conscious Sedation Pre-Proced Time 11:36 ASA Score 3 For ASA 3 and 4: Consider anesthesia and medical clearance. Also, for patients with a history of failed moderate sedation consider anesthesia. Airway Lungs Heart ASA score ASA 1: a normal healthy patient ASA 2: a patient with a mild systemic disease (mid diabetes, controlled hypertension, obesity ASA 3: a patient with a severe systemic disease that limits activity (angina, COPD, prior Myocardial infarction) ASA 4: a patient with an incapacitating disease that is a constant threat to life (CHF, renal failure) ASA 5: a moribund patient not expected to survive 24 hrs. (ruptured aneurysm) ASA 6: a declared brain- patient whose organs are being harvested. For emergent operations, add the letter E after the classification Mallampati Classification Grade 3 Sedation Plan Analgesia, Amnesia, Plan communicated to team members, Discussed options with patient/fam, Discussed risks with patient/fam The patient is an appropriate candidate to undergo the planned procedure, sedation, and anesthesia. The patient immediately re-assessed prior to indication. YRIS JOSEPH MD May 10, 2022 11:36
--- NOTE | 2022-05-10 12:26 | Cardiac Cath Report ---
Cardiac Cath Report Physician (s)/Public Aid Eligibility Assistant (s) Physician YRIS JOSEPH MD Pre-Procedure Diagnosis Pre-Procedure Diagnosis: CP Post-Procedure Note Procedure Start Date: May 10, 2022 Name of Procedure: Left heart catheterization Thrombectomy to the right coronary artery Findings/Procedure Note PROCEDURE NOTE: 57-year-old lady admitted with acute ST elevation myocardial infarction overnight, underwent balloon angioplasty. [place] better initially, started to have increasing chest pain, became 10/10 in intensity. I decided to bring her back for emergency cardiac catheterization. After explaining the procedure to the patient, all pros and cons were explained, all questions were answered. The patient signed the consent and then she was placed in the cardiac catheterization laboratory. Groin was prepped in SL fashion local anesthesia was used. Sheath placed in the right radial artery, Rough And Ready catheter was advanced to the left ventricular cavity, pressure was measured pullback LV to aorta was done then engaged the right and left coronary system, patient had thrombus in the distal right PDA. Received a total of 6000 units of heparin, Janet right guide was used and BMW wire was advanced then I used export catheter and did embolectomy. Angiogram showed excellent result with reestablishment of flow. At the end of the procedure the sheath was removed. Vascular band was used FINDINGS: Hemodynamics LV 112/28, end-diastolic pressure 28 Aorta 108/78 mean of 70 ANATOMY: Left Main is free of obstructive disease Left Anterior Descending has mild disease about 10% stenosis in the mid LAD Left Circumflex is nondominant artery with no obstructive disease Right Coronary Artery is large dominant artery with a thrombus at the distal right PDA status post thrombectomy with reestablishment of flow and no residual stenosis, patient has mild disease less than 10% in the distal right coronary artery LV Gram was not done, pressure was measured PERCUTANEOUS INTERVENTION: Pre stenosis 100% Post Stenosis 0% Pre TAWANNA flow 0 Post TAWANNA flow 3 Dominance right coronary artery CONCLUSION: Total occlusion of the distal right PDA status post thrombectomy with resolution of the occlusion DISCUSSION AND RECOMMENDATION: Continue to maximize medical therapy Anesthesia Type: Conscious Sedation Estimated blood loss (mL): 25 ml Contrast Amount: 90 ml Total Radiation Dose: 942 mGy Post-Procedure Diagnosis Post-operative diagnosis: Chest pain Coronary artery disease Hypertension Hyperlipidemia YRIS JOSEPH MD May 10, 2022 12:26
[2022-05-10] MEDS: RT-ALBUTEROL/IPRATROPIUM 3 ML (DUONEB) VIAL INH SCH ×3 (13:02→21:39)
[2022-05-10] MEDS ORDERED: EPTIFIBATIDE 20 MG/10 ML IV NR (17:45)
[2022-05-10] MEDS ORDERED: [UNRECOGNIZED DRUG - OTHER] IV NR (17:45)
[2022-05-10] MEDS ORDERED: EPTIFIBATIDE DRIP 100 ML IV SCH (18:00)
[2022-05-10 18:50] VITALS: BP 110/68
[2022-05-11] MEDS: NS IV 1000 ML 1,000 ML IV SCH ×3 (00:25→20:25)
[2022-05-11] MEDS: morphine INJ 4 MG/ML 1 ML (VIAL/SYRINGE) IVP PRN ×2 (01:44→05:48)
[2022-05-11 05:26] LABS: HEMATOCRIT 37 % (35-52); HEMOGLOBIN 12.1 g/dL (11.5-16.0); MEAN CORPUSCULAR HEMOGLOBIN 31 pg (25-34); MEAN CORPUSCULAR HGB CONC 33 g/dL (32-36); MEAN CORPUSCULAR VOLUME 96 fL (80-99); MEAN PLATELET VOLUME 9.9 fL (9.0-12.2); PLATELET COUNT 192 10^3/uL (130-400); WHITE BLOOD COUNT 9.8 10^3/uL (4.3-11.0)
[2022-05-11 05:30] LABS: POTASSIUM 3.8 MMOL/L (3.6-5.0)
[2022-05-11] MEDS: NITRO DRIP 25000 MCG/D5W 250 ML IV SCH (05:30)
[2022-05-11 05:32] LABS: CALCIUM 7.4 MG/DL (8.5-10.1)
[2022-05-11 05:36] LABS: CREATININE SERUM 0.54 MG/DL (0.60-1.30)
[2022-05-11 05:45] LABS: TRIGLYCERIDES 172 MG/DL (<150); VLDL CHOLESTEROL 34 MG/DL (5-40)
[2022-05-11 05:51] LABS: CHOLESTEROL 151 MG/DL (< 200); HDL CHOLESTEROL 32 MG/DL (40-60)
[2022-05-11] MEDS ORDERED: NS IV 500 ML 500 ML IV PRN (06:00)
[2022-05-11] MEDS ORDERED: CATHETER FLUSH 10 ML SYR IVP PRN (06:30)
[2022-05-11] MEDS: MAGNESIUM 1 GM/100 ML IVPB 100 ML IV SCH ×4 (06:56→11:44)
[2022-05-11] MEDS: RT-ALBUTEROL/IPRATROPIUM 3 ML (DUONEB) VIAL INH SCH (07:59)
[2022-05-11] MEDS ORDERED: KCL 20 MEQ TAB (K-DUR) PO ONE (08:00)
[2022-05-11] MEDS: ASPIRIN E.C. 81 MG (ECOTRIN) TAB PO SCH (08:46)
[2022-05-11] MEDS: ISOSORBIDE MONONITRATE 30 MG (IMDUR) TAB PO SCH (08:46)
[2022-05-11] MEDS: PANTOPRAZOLE 40 MG (PROTONIX) TAB PO SCH (08:46)
[2022-05-11] MEDS: amLODIPine 5 MG (NORVASC) TAB PO SCH (08:46)
[2022-05-11] MEDS: TICAGRELOR 90 MG TABLET (BRILINTA) PO SCH ×2 (08:47→20:24)
--- NOTE | 2022-05-11 09:09 | Cardiology Progress Note ---
Subjective Date Seen by Provider: May 11, 2022 Time Seen by Provider: 09:05 Subjective/Events-last exam Patient continues to have chest pain on and off last night and this morning had more significant chest pain, she was fairly anxious. EKG did not show any acute changes Review of Systems General: No Chills, No Night Sweats, No Fatigue, No Malaise, No Appetite, No Other HEENT: No Head Aches, No Visual Changes, No Eye Pain, No Ear Pain, No Dysphasia, No Sinus Congestion, No Post Nasal Drip, No Sore Throat, No Other Pulmonary: Dyspnea; No Cough, No Pleuritic Chest Pain, No Other Cardiovascular: Chest Pain; No: Palpitations, Orthopnea, Paroxysmal Noc. Dyspnea, Edema, Lt Headedness, Other Objective-Cardiology Exam Last Set of Vital Signs Vital Signs 05/11/22 05/11/22 08:00 09:00 Temp 35.7 Pulse 75 Resp 24 B/P (MAP) 127/70 (80) Pulse Ox 92 O2 Delivery Nasal Cannula O2 Flow Rate 3.00 I&O Intake and Output 05/11/22 00:00 Intake Total 3190 ml Output Total 0 ml Balance 3190 ml Intake Oral 1740 ml IV Total 1450 ml Output Urine Total 0 ml # Voids 3 Daily Weight Change No General: Alert, Oriented X3, Cooperative, No Acute Distress HEENT: Atraumatic, PERRLA Neck: Supple, No JVD Lungs: Clear to Auscultation, Normal Air Movement Heart: Regular Rate, Normal S1, Normal S2, No Murmurs Abdomen: Normal Bowel Sounds, Soft, No Tenderness, No Hepatosplenomegaly, No Masses Extremities: No Clubbing, No Cyanosis, No Edema, Normal Pulses, No Tenderness/Swelling Skin: No Rashes, No Breakdown, No Significant Lesion Neuro: Normal Gait, Normal Speech, Strength at 5/5 X4 Ext, Normal Tone, Sensation Intact Psych/Mental Status: Mental Status NL, Mood NL Results Lab Laboratory Tests 05/11/22 04:15 A/P-Cardiology Admission Diagnosis Acute ST elevation myocardial infarction Coronary artery disease Hypertension Tobaccoism Assessment/Plan Acute ST elevation myocardial infarction in the inferior wall Repeat cardiac catheterization was done on May 10, 2022, thrombectomy to the distal right PDA was done with excellent results. Recurrent chest pain, continue to have chest pain on and off. Gave her nitroglycerin bolus and a drip last night Maintained on Imdur I will add Ranexa Coronary artery disease, reporting history of myocardial infarction in 2011, did not require any intervention. Cardiac catheterization was done on May 10, 2022 around midnight with balloon angioplasty to the distal right PDA Patient continues to have recurrent chest pain and some minor EKG changes I took her back to the [facility] on May 10, 2022 at noon and did thrombectomy to the distal right PDA Reestablish flow in the right coronary artery. Continue to have recurrent chest pain Hypertension, maintained on hydrochlorothiazide, metoprolol and amlodipine Hyperlipidemia, LDL 110, started on Lipitor 80 mg daily Tobaccoism, educated on smoking cessation YRIS JOSEPH MD May 11, 2022 09:09
[2022-05-11] MEDS ORDERED: ALPRAZolam 0.25 MG (XANAX) TAB PO ONE (09:15)
--- NOTE | 2022-05-11 09:54 | Progress Note - Hospitalist ---
JOSENISHI Shashi 05/11/22 0954: Subjective HPI/CC On Admission Date Seen by Provider: May 11, 2022 Time Seen by Provider: 08:45 Patient is being seen in consultation from Dr. Kennedy, Cardiology, for medical management of patient. 57 year old female with a past medical history of HTN and tobaccism who awoke last night (05/09) with severe retrosternal chest pain that radiated to the back. Patient also endorsed Shortness of breath. Patient had never had something like this happen before. While trying to get dressed with her assisting, she knew this was something severe and that she needed to go to the hospital. Rosemary ent arrived to [facility] ER via ambulance and was found to have ST Elevation on EKG and immediately underwent MD protocol. Patient was taken for emergency heart catheterization and underwent RCA balloon angioplasty. Patient is currently resting in bed. States she feels fatigued and is having some residual chest pain, but overall feels much better than last night. Subjective/Events-last exam Patient is seen at bedside this AM. Her is present. She reports she is having "stabbing" chest pain currently which started last night around 5pm and now it has progressed to where she is feeling it down her left arm as well. She rates it a 5/10 and is very anxious about having an ongoing heart attack. She also reports she felt sick to her stomach last night and felt as though she could've thrown up multiple times but did not. She also notes that she has some SOB and feels like her breathing treatments increased her symptoms of pain in her chest. During exam, Dr. Kennedy arrives at bedside and offers reassurance, noting that her procedure yesterday went very well and her arteries looked good and he expects her to have some chest pain on and off for upto 2 weeks. He reports he will keep her at least an extra day to improve her comfort and notes that her EKGs all look normal at this time and he offers anxiolytics and another anti-anginal agent. She appears reassured at this time. She reports no BMs but is urinating without issue. Objective Exam Vital Signs Vital Signs Date Time Temp Pulse Resp B/P (MAP) Pulse Ox O2 Delivery O2 Flow Rate FiO2 05/11/22 12:00 71 9 93 Nasal Cannula 3.00 05/11/22 11:00 117/56 (76) 05/11/22 08:00 35.7 Capillary Refill : Less Than 3 Seconds General Appearance: Anxious, Obese HEENT: PERRL/EOMI Neck: Full Range of Motion, Supple Respiratory: Chest Non Tender, Wheezing (global wheezing throughout lung cervantes. ) Cardiovascular: Regular Rate, Rhythm, No Edema, No Murmur, Normal Peripheral Pulses Gastrointestinal: Normal Bowel Sounds, Non Tender, Soft Extremity: Normal Inspection, Normal Range of Motion, No Pedal Edema Neurologic/Psychiatric: Alert, Oriented x3 Skin: Normal Color, Warm/Dry Results/Procedures Lab Laboratory Tests 05/11/22 04:15 Patient resulted labs reviewed. Imaging: Reviewed Imaging Films, Reviewed Imaging Report Radiology NAME: KALEN POWELL [facility] REC#: [id number] PT STATUS: ADM IN : 1965 PHYSICIAN: KRISTIN MADDEN DO ADMIT DATE: 05/10/22/ICU Signed Date of Exam:05/10/22 CHEST 1 VIEW, AP/PA ONLY INDICATION: 57-year-old female with chest pain COMPARISONS: None FINDINGS: Single view of the chest is provided. Overlying external pacer pads are noted. Cardiac contour is normal. Background chronic parenchymal changes are seen. Some basilar atelectatic infiltrates are noted. Soft tissues and bony thorax are unremarkable. IMPRESSION: Background chronic parenchymal changes with some basilar atelectatic infiltrates but no confluent consolidations. Overlying pacer pad noted. Dictated by: Dictated on workstation # [id number] Dict: 05/10/22 0458 Trans: 05/10/22 0606 [facility] [id number] Interpreted by: SALOMON FISCHER MD Electronically signed by: SALOMON FISCHER MD 05/10/22 0606 Assessment/Plan Assessment and Plan Assess & Plan/Chief Complaint Assessment: 57 y/o F presenting with Acute STEMI now Hospital day 1 Acute STEMI of Inferior Wall S/P RCA Balloon Angioplasty s/p thrombectomy of distal Rt PDA STEMI CAD Ongoing Chest Pain - Patient underwent Heart Catheterization last night with balloon angioplasty to RCA. Initially the chest pain receded. However patient began having severe chest pain again in the late morning and the decision was made to undergo a repeat heart cath. Patient was found to have a thrombus at the distal right PDA. A thrombectomy was successfully performed with reestablishment of flow with no residual stenosis. - Management per Cardiology team -Improved on FU exam. Wheezing, probable some degree of COPD Tobaccism -Patient wheezy on exam, somewhat SOB. Duoneb reportedly worsened chest pain and anxiety. Will DC as patient does not feel she needs it. -Patient on home varenicline. Currently down to 5x cigarettes a day. Currently declines nicotine patches. Continue to encourage cessation. HTN - Home medications on file. Patient currently requiring less HTN meds than at baseline. Management per Cardiology team. HLD - Patient started on Atorvastatin 80 with a goal LDL <70 with new hx of cardiac event. Depression - Home meds are on file. Will plan on restarting once patient's cardiac condition is stable. Lumbago - On cyclobenzaprine at home. Pain is currently tolerable. Will add APAP prn. Continue to monitor. PPI Prophylaxis: Protonix DVT Prophylaxis: Per cardiology team Dispo: Will move to cardiac step down unit and continue monitoring. Clinical Quality Measures AMI/AHF: ASA po Prior to arrival: Yes GWEN POWELL DO 05/12/22 0537: Supervisory-Addendum Brief Verification & Attestation Participated in pt care: history, MDM, physical Personally performed: exam, history, MDM, supervision of care Care discussed with: Medical Student Procedures: n/a Results interpretation: Verified all documentation Verification and Attestation of Medical Student E/M Service A medical student performed and documented this service in my presence. I reviewed and verified all information documented by the medical student and made modifications to such information, when appropriate. I personally performed the physical exam and medical decision making. Gwen Powell May 12, 2022,05:37 NISHI GARCIA May 11, 2022 09:54 GWEN POWELL DO May 12, 2022 05:37
[2022-05-11] MEDS: RANOLAZINE ER 500 MG TAB (RANEXA) PO SCH ×2 (10:03→20:24)
[2022-05-11 10:58] LABS: TOTAL PROTEIN 4.7 GM/DL (6.4-8.2)
[2022-05-11 11:00] LABS: BILIRUBIN,TOTAL 0.4 MG/DL (0.1-1.0)
[2022-05-11 11:04] LABS: BILIRUBIN,DIRECT 0.2 MG/DL (0.0-0.3); BILIRUBIN,INDIRECT 0.2 MG/DL
[2022-05-11] MEDS ORDERED: ANTACID SUSP 30 ML UDC (MYLANTA) PO PRN (15:30)
[2022-05-11] MEDS ORDERED: HYDROmorphone 2 MG/ML VIAL (DILAUDID) IV PRN (15:30)
[2022-05-11] MEDS ORDERED: MELATONIN 3 MG TABLET PO PRN (15:30)
[2022-05-11] MEDS ORDERED: ONDANSETRON 4 MG (ZOFRAN) ORAL DISSOLVE TAB PO PRN (15:30)
[2022-05-11] MEDS ORDERED: diphenhydrAMINE 50 MG/ML INJ (BENADRYL) IVP PRN (15:30)
[2022-05-11] MEDS ORDERED: ONDANSETRON 4 MG/2 ML (SDV) Z0FRAN IV PRN (15:30)
[2022-05-11] MEDS ORDERED: polyethylene glycoL POWDER 17 GM (MIRALAX) PACK PO PRN (15:30)
[2022-05-11] MEDS ORDERED: ACETAMINOPHEN 325 MG TABLET PO PRN (15:30)
[2022-05-11] MEDS ORDERED: BISACODYL 10 MG SUPP (DULCOLAX) PR PRN (15:30)
[2022-05-11] MEDS ORDERED: MILK OF MAGNESIA 400 MG/5 ML 30 ML UDC PO PRN (15:30)
[2022-05-11] MEDS ORDERED: CALCIUM CARBONATE 500 MG (TUMS) TAB.CHEW PO PRN (15:30)
[2022-05-11] MEDS ORDERED: diphenhydrAMINE 25 MG TAB (BENADRYL) PO PRN (15:30)
[2022-05-11] MEDS ORDERED: LACTULOSE SYRUP 10GM/15ML (ENULOSE) 30ML UDC PO PRN (15:30)
[2022-05-11] MEDS: DOCUSATE SODIUM 100 MG (COLACE) CAP PO SCH (20:24)
[2022-05-11] MEDS: SENNOSIDES 8.6 MG (SENOKOT) TAB PO SCH (20:24)
[2022-05-11] MEDS ORDERED: CYCLOBENZAPRINE 10 MG (FLEXERIL) TAB PO SCH (21:00)
[2022-05-11] MEDS ORDERED: FUROSEMIDE 40 MG/4 ML INJ (LASIX) IVP ONE (21:15)
[2022-05-11] MEDS ORDERED: FUROSEMIDE 40 MG/4 ML INJ (LASIX) ONE (21:20)
[2022-05-11] MEDS ORDERED: RT-ALBUTEROL/IPRATROPIUM 3 ML (DUONEB) VIAL INH PRN (22:00)
[2022-05-12 02:48] LABS: BASOPHILS % (AUTO) 0 % (0-10); EOSINOPHILS # (AUTO) 0.1 10^3/uL (0.0-0.3); EOSINOPHILS % (AUTO) 1 % (0-10); HEMATOCRIT 39 % (35-52); LYMPHOCYTES # (AUTO) 1.4 10^3/uL (1.0-4.0); LYMPHOCYTES % (AUTO) 11 % (12-44); MEAN CORPUSCULAR HEMOGLOBIN 32 pg (25-34); MEAN CORPUSCULAR HGB CONC 34 g/dL (32-36); MEAN CORPUSCULAR VOLUME 94 fL (80-99); MEAN PLATELET VOLUME 9.5 fL (9.0-12.2); MONOCYTES # (AUTO) 0.7 10^3/uL (0.0-1.0); MONOCYTES % (AUTO) 5 % (0-12); NEUTROPHILS # (AUTO) 10.7 10^3/uL (1.8-7.8); NEUTROPHILS % (AUTO) 83 % (42-75); PLATELET COUNT 223 10^3/uL (130-400)
[2022-05-12 03:08] LABS: ALBUMIN 3.2 GM/DL (3.2-4.5); BILIRUBIN,TOTAL 1.1 MG/DL (0.1-1.0); CALCIUM 8.2 MG/DL (8.5-10.1); CREATININE SERUM 0.63 MG/DL (0.60-1.30); MAGNESIUM 2.1 MG/DL (1.6-2.4); PHOSPHORUS 2.8 MG/DL (2.3-4.7); POTASSIUM 3.8 MMOL/L (3.6-5.0); TOTAL PROTEIN 5.7 GM/DL (6.4-8.2)
[2022-05-12] MEDS: NITRO DRIP 25000 MCG/D5W 250 ML IV SCH (03:25)
[2022-05-12] MEDS ORDERED: NS IV 500 ML 500 ML IV PRN (03:30)
[2022-05-12] MEDS ORDERED: KCL 20 MEQ TAB (K-DUR) PO SCH ×2 (06:00)
[2022-05-12] MEDS ORDERED: MAGNESIUM 1 GM/100 ML IVPB 100 ML IV SCH ×2 (06:00)
[2022-05-12] MEDS ORDERED: POTASSIUM CL 10MEQ/50ML IVPB 50 ML IV SCH ×2 (06:00)
--- NOTE | 2022-05-12 07:35 | Progress Note - Hospitalist ---
Subjective HPI/CC On Admission Date Seen by Provider: May 12, 2022 Time Seen by Provider: 11:00 Patient is being seen in consultation from Dr. Kennedy, Cardiology, for medical management of patient. 57 year old female with a past medical history of HTN and tobaccism who awoke last night (05/09) with severe retrosternal chest pain that radiated to the back. Patient also endorsed Shortness of breath. Patient had never had something like this happen before. While trying to get dressed with her assisting, she knew this was something severe and that she needed to go to the hospital. Patient arrived to [facility] ER via ambulance and was found to have ST Elevation on EKG and immediately underwent WA protocol. Patient was taken for emergency heart catheterization and underwent RCA balloon angioplasty. Patient is currently resting in bed. States she feels fatigued and is having some residual chest pain, but overall feels much better than last night. Objective Exam Vital Signs Vital Signs Date Time Temp Pulse Resp B/P (MAP) Pulse Ox O2 Delivery O2 Flow Rate FiO2 05/12/22 10:39 Room Air 05/12/22 09:00 79 16 94 5.00 05/12/22 07:46 36.7 Capillary Refill : Less Than 3 Seconds Results/Procedures Lab Laboratory Tests 05/12/22 02:30 Patient resulted labs reviewed. Imaging: Reviewed Imaging Films, Reviewed Imaging Report Assessment/Plan Assessment and Plan Assess & Plan/Chief Complaint Nebs for wheezing Cath today Smoking cessation Critical Care Critically Ill Patient Clinical Quality Measures AMI/AHF: ASA po Prior to arrival: Yes GWEN POWELL DO May 12, 2022 07:35
[2022-05-12] MEDS ORDERED: KCL 20 MEQ TAB (K-DUR) PO ONE ×3 (08:00→09:45)
[2022-05-12] MEDS: RANOLAZINE ER 500 MG TAB (RANEXA) PO SCH (08:08)
[2022-05-12] MEDS: ASPIRIN E.C. 81 MG (ECOTRIN) TAB PO SCH (08:08)
--- NOTE | 2022-05-12 08:08 | Diagnostic Imaging Report ---
INDICATION: Dyspnea. TECHNIQUE: Single view chest 7:53 AM. CORRELATION STUDY: 05/10/2022 FINDINGS: Mediastinal structures generally stable. Right perihilar and basilar infiltrate-like opacity along with small right pleural effusion. IMPRESSION: 1. Right perihilar and basilar infiltrate-like opacity along with small right pleural effusion. Dictated by: Dictated on workstation # [id number]
[2022-05-12] MEDS: SENNOSIDES 8.6 MG (SENOKOT) TAB PO SCH (08:09)
[2022-05-12] MEDS: TICAGRELOR 90 MG TABLET (BRILINTA) PO SCH (08:09)
[2022-05-12] MEDS: ISOSORBIDE MONONITRATE 30 MG (IMDUR) TAB PO SCH (08:09)
[2022-05-12] MEDS: DOCUSATE SODIUM 100 MG (COLACE) CAP PO SCH (08:09)
[2022-05-12] MEDS: amLODIPine 5 MG (NORVASC) TAB PO SCH (08:09)
[2022-05-12] MEDS: PANTOPRAZOLE 40 MG (PROTONIX) TAB PO SCH (08:09)
[2022-05-12] MEDS ORDERED: PAROXETINE HCL 40 MG PO SCH (09:00)
[2022-05-12] MEDS ORDERED: PARoxetine 20 MG (PAXIL) TAB PO SCH (09:00)
[2022-05-12] MEDS ORDERED: FUROSEMIDE 40 MG/4 ML INJ (LASIX) IVP ONE ×2 (09:15→09:45)
[2022-05-12] MEDS ORDERED: MTP25TSR PO (09:23)
[2022-05-12] MEDS ORDERED: ATOR80TA76 PO (09:23)
[2022-05-12] MEDS ORDERED: ISOS30TA82 PO (09:23)
[2022-05-12] MEDS ORDERED: TICA90TA PO (09:23)
[2022-05-12] MEDS ORDERED: PANT40TA52 PO (09:23)
[2022-05-12] MEDS ORDERED: RANO500T3 PO (09:23)
[2022-05-12] MEDS ORDERED: EMPA10TA PO (09:23)
[2022-05-12] MEDS ORDERED: ASPI-1238 PO (09:23)
--- NOTE | 2022-05-12 09:24 | Discharge Inst-Post CATH ---
Discharge Inst-CATH/EP Problems Reviewed?: Yes Post Cardiac Cath/EP D/C Inst Follow Up/Plan Appointment with Dr. Kennedy's office in 2 weeks <b>CARDIAC CATH/EP PROCEDURE DISCHARGE INSTRUCTIONS</b> ACTIVITY * Go Home directly and rest. * Limit activity of the leg (or wrist if it was used) for 7 days including aerobics, swimming, jogging, bicycling, etc. * Restrict stair-climbing for 7 days if possible, if not, climb up with your non-cath leg, then bring together on the same step. * Avoid lifting, pushing, pulling or excessive movement of the affected extremity for 7 days. * Customary sexual activity may be resumed after 2 days-use caution not to use a position that strains or causes pain to the affected extremity. * No driving for 24 hours. * NO SMOKING. * Avoid straining for bowel movements for 7 days. * Gentle walking on level ground is allowed. * Returning to work will depend on the type of procedure and the results. Your doctor will discuss this with you. CALL YOUR DOCTOR FOR ANY OF THE FOLLOWING: *If bleeding from the puncture site occurs- Apply gentle pressure to site with clean cloth and call your doctor or EMS. * If a knot or lump forms under the skin, increases in size, or causes pain. * If bruising appears to be worsening or moving further down your leg instead of disappearing. * Temperature above 101 F. CARE OF YOUR GROIN INCISION; * Bruising or purple discoloration of the skin near the puncture site is common. * You may shower only, no bathtub bathing for 5 days. Be careful to avoid slipping as your leg may feel stiff. * If a closure device was used on your femoral artery, please see the attached guide regarding care of the device and your leg. * Leave dressing on FOR 24 hours. CARE OF YOUR WRIST INCISION; * Bruising or purple discoloration of the skin near the puncture site is common. * You may shower. * DO NOT submerge wrist. * Leave dressing on FOR 24 hours. YRIS KENNEDY MD May 12, 2022 09:23
--- NOTE | 2022-05-12 09:27 | Cardiology Discharge Summary ---
Discharge Summary Hospital Course Problems Reviewed?: Yes Hospital Course Date of Admission: May 10, 2022 at 01:27 Admission Diagnosis : Family Physician/Provider: Josy Maria MD Date of Discharge: 05/12/22 Discharge Diagnosis: [Acute ST elevation myocardial infarction in the inferior wall Coronary artery disease Chest pain Hypertension Hyperlipidemia] Hospital Course: [ Acute ST elevation myocardial infarction in the inferior wall Repeat cardiac catheterization was done on May 10, 2022, thrombectomy to the distal right PDA was done with excellent results. Recurrent chest pain, continue to have chest pain on and off. Gave her nitroglycerin bolus and a drip last night Better today, responded to Imdur and Ranexa Coronary artery disease, reporting history of myocardial infarction in 2011, did not require any intervention. Cardiac catheterization was done on May 10, 2022 around midnight with balloon angioplasty to the distal right PDA Patient continues to have recurrent chest pain and some minor EKG changes I took her back to [facility] on May 10, 2022 at noon and did thrombectomy to the distal right PDA Reestablish flow in the right coronary artery. Feeling better today Status post flash pulmonary edema secondary to myocardial infarction, responded to Lasix. I will maintain her on hydrochlorothiazide as an outpatient Hypertension, maintained on hydrochlorothiazide, metoprolol and Imdur Discontinue amlodipine Hyperlipidemia, LDL 110, started on Lipitor 80 mg daily Tobaccoism, educated on smoking cessation Hyperglycemia, diabetes mellitus, starting Jardiance] Labs and Pending Lab Test: Laboratory Tests 05/12/22 02:30: White Blood Count 13.0H, Red Blood Count 4.10, Hemoglobin 13.0, Hematocrit 39, Mean Corpuscular Volume 94, Mean Corpuscular Hemoglobin 32, Mean Corpuscular Hemoglobin Concent 34, Red Cell Distribution Width 15.5H, Platelet Count 223, Mean Platelet Volume 9.5, Immature Granulocyte % (Auto) 0, Neutrophils (%) (Auto) 83H, Lymphocytes (%) (Auto) 11L, Monocytes (%) (Auto) 5, Eosinophils (%) (Auto) 1, Basophils (%) (Auto) 0, Neutrophils # (Auto) 10.7H, Lymphocytes # (Auto) 1.4, Monocytes # (Auto) 0.7, Eosinophils # (Auto) 0.1, Basophils # (Auto) 0.0, Immature Granulocyte # (Auto) 0.1, Sodium Level 138, Potassium Level 3.8, Chloride Level 103, Carbon Dioxide Level 25, Anion Gap 10, Blood Urea Nitrogen 4L, Creatinine 0.63, Estimat Glomerular Filtration Rate 102, BUN/Creatinine Ratio 6, Glucose Level 115H, Calcium Level 8.2L, Corrected Calcium 8.8, Phosphorus Level 2.8, Magnesium Level 2.1, Total Bilirubin 1.1H, Aspartate Amino Transf (AST/SGOT) 93H, Alanine Aminotransferase (ALT/SGPT) 33, Alkaline Phosphatase 57, Troponin I 24.064*H, B-Type Natriuretic Peptide 434.3H, Total Protein 5.7L, Albumin 3.2 Home Meds Active Jardiance (Empagliflozin) 10 Mg Tablet 10 Mg PO DAILY Pantoprazole Sodium 40 Mg Tablet.dr 40 Mg PO DAILY Aspirin EC (Aspirin) 81 Mg Tablet.dr 81 Mg PO DAILY Metoprolol Succinate 25 Mg Tab.er.24h 25 Mg PO DAILY Isosorbide Mononitrate ER (Isosorbide Mononitrate) 30 Mg Tab.er.24h 30 Mg PO DAILY Atorvastatin Calcium 80 Mg Tablet 80 Mg PO HS Ranexa (Ranolazine) 500 Mg Tab.er.12h 500 Mg PO BID Brilinta (Ticagrelor) 90 Mg Tablet 90 Mg PO BID Reported Tylenol Extra Strength (Acetaminophen) 500 Mg Tablet 1,000 Mg PO Q8H PRN Cyclobenzaprine HCl 10 Mg Tablet 10 Mg PO HS Metoprolol Succinate 50 Mg Tab.er.24h 50 Mg PO DAILY Hydrochlorothiazide 25 Mg Tablet 25 Mg PO DAILY Lisinopril 40 Mg Tablet 40 Mg PO DAILY LAST FILLED 01-17-2022 #30 DAY SUPPLY Amlodipine Besylate 10 Mg Tablet 10 Mg PO DAILY Paxil (Paroxetine HCl) 40 Mg Tablet 40 Mg PO DAILY TAKES 20MG +40MG TOGETHER TO EQUAL 60MG DAILY Paxil (Paroxetine HCl) 20 Mg Tablet 20 Mg PO DAILY TAKES 20MG +40MG TOGETHER TO EQUAL 60MG DAILY Assessment/Pt DC Instructions Arrangement for follow-up as an outpatient Post-cath instruction Activity as Tolerated: Yes Discharge Physical Examination Allergies: Coded Allergies: No Known Drug Allergies (Unverified , 07/27/13) General Appearance: No Apparent Distress HEENT: PERRL/EOMI, TMs Normal, Pharynx Normal Respiratory: Chest Non Tender, No Accessory Muscle Use Cardiovascular: Regular Rate, Rhythm, No Edema, No Gallop, No JVD, No Murmur Gastrointestinal: Normal Bowel Sounds, No Organomegaly, No Pulsatile Mass, Non Tender Extremity: Normal Capillary Refill, Normal Inspection, Normal Range of Motion, Non Tender Skin: Normal Color, Warm/Dry Neurologic/Psychiatric: Alert, Oriented x3, No Motor/Sensory Deficits, Normal Mood/Affect, diploma medical assistant II-XII Norm as Tested Clinical Quality Measures Admission Status Admission Status: Inpatient Order (span 2 midnights) Reason for Inpatient Admission: Acute ST elevation myocardial infarction AMI/AHF: Ejection Fraction: Normal LVSF ASA po Prior to arrival: Yes YRIS JOSEPH MD May 12, 2022 09:27
== END 2022-05-12 10:43 | disposition home or self-care (01) | DRG 250 ==
LOC: EDUNIT# 00:16 → ER 00:17 → SDC 00:35 → ICU 01:27
PROVIDERS: ADMIT Internal Medicine Cardiovascular Disease; ATTEND Internal Medicine Cardiovascular Disease
PROC: 02703ZZ Dilation of Coronary Artery, One Artery, Percutaneous Approach (ICD-10-PCS; principal; 2022-05-10)
PROC: 02C03ZZ Extirpation of Matter from Coronary Artery, One Artery, Percutaneous Approach (ICD-10-PCS; 2022-05-10)
PROC: 4A023N7 Measurement of Cardiac Sampling and Pressure, Left Heart, Percutaneous Approach (ICD-10-PCS; 2022-05-10)
PROC: B2111ZZ Fluoroscopy of Multiple Coronary Arteries using Low Osmolar Contrast (ICD-10-PCS; 2022-05-10)
PROC: B2151ZZ Fluoroscopy of Left Heart using Low Osmolar Contrast (ICD-10-PCS; 2022-05-10)
DX: I21.11 ST elevation (STEMI) myocardial infarction involving right coronary artery (principal); J81.0 Acute pulmonary edema; I25.10 Atherosclerotic heart disease of native coronary artery without angina pectoris; E11.65 Type 2 diabetes mellitus with hyperglycemia; I10 Essential (primary) hypertension; E78.00 Pure hypercholesterolemia, unspecified; F17.210 Nicotine dependence, cigarettes, uncomplicated; F32.A Depression, unspecified; M54.50 Low back pain, unspecified; I25.2 Old myocardial infarction
CPT/HCPCS: 36415; 37184; 71045; 80048; 80053; 80061; 80076; 83735; 83874; 83880; 84100; 84484; 85025; 85027; 85610; 85730; 93005; 93041; 93306; 93458; 94640